=== PATIENT | male | born 1985 | race Caucasian/White ===

== ENCOUNTER 2017-09-08 19:04 | Inpatient (IN) | payer OTHER ==
[~2017-09-08] VITALS: Ht 172.7 cm; Wt 69.3 kg
[~2017-09-08 19:04] MED LIST: METH10TA2 PO
--- NOTE | 2017-09-08 19:33 | EMERGENCY ROOM VISIT NOTE ---
History First contact with patient: 19:08 Chief Complaint: MENTAL HEALTH EVALUATION Stated Complaint: SUICIDAL - DEPRESSED History of Present Illness The patient is a 32 year old male who presents to the Emergency Room with complaints of dangerous behavior today and not caring whether he lives or dies. Patient with prior history of drug abuse but states he has not used illicit drugs in 10 years. Patient uses methadone chronically. Patient denies alcohol use. Denies any recent injury or illness. Patient states he did lose his job earlier today. Patient denies any family locally. Patient states he does not have specific plan to hurt himself, however does not care if he is alive. No thoughts of hurting anyone else, denies paranoia and hallucinations. Source of History: patient Onset: today Position: other (global) Quality: other (mental health) Timing: other (episode) Note: The patient complains of suicidal ideations. The patient denies recent illness, recent injury, having a plan, homicidal ideations, paranoia, and hallucinations. Review of Systems See HPI for pertinent positives & negatives. A total of 10 systems reviewed and were otherwise negative. Past Medical/Surgical History Medical Problems: (1) Anxiety (2) Bipolar disorder (3) Cannabis abuse (4) Cocaine abuse (5) Depression (6) Hepatitis C (7) Heroin abuse (8) Mood disorder (9) Personality disorder (10) PTSD (post-traumatic stress disorder) Social History Problems: (1) IVDU (intravenous drug user) Family History Patient reports no known family medical history. Social History Smoking Status: Former Smoker Alcohol Use: none Drug Use: marijuana Housing Status: lives alone Occupation Status: employed Current/Historical Medications Scheduled Methadone Hcl (Dolophine), 92 MG PO DAILY Physical Exam Vital Signs Date Time Temp Pulse Resp B/P (MAP) Pulse Ox O2 Delivery O2 Flow Rate FiO2 09/08/17 22:26 36.7 51 16 103/60 09/08/17 20:57 54 16 114/70 100 Room Air 09/08/17 19:13 36.7 68 16 129/77 98 Room Air Physical Exam GENERAL: alert, well appearing, well nourished, no distress, non-toxic EYE EXAM: normal conjunctiva, PERRL and EOM's grossly intact OROPHARYNX: no exudate, no erythema, lips, buccal mucosa, and tongue normal and mucous membranes are moist NECK: supple, no nuchal rigidity, no adenopathy, non-tender LUNGS: Clear to auscultation. Normal chest wall mechanics HEART: no murmurs, S1 normal and S2 normal ABDOMEN: abdomen soft, non-tender, normo-active bowel sounds, no masses, no rebound or guarding. BACK: Back is symmetrical on inspection and there is no deformity, no midline tenderness, no CVA tenderness. SKIN: no rashes and no bruising UPPER EXTREMITIES: upper extremities are grossly normal. LOWER EXTREMITIES: No pitting edema. NEURO EXAM: Normal sensorium, cranial nerves II-XII grossly intact, normal speech, no gross weakness of arms, no gross weakness of legs. Gross sensation intact. Medical Decision & Procedures Laboratory Results 09/08/17 19:58 Red Blood Count 4.04, Mean Corpuscular Volume 96.5, Mean Corpuscular Hemoglobin 32.2, Mean Corpuscular Hemoglobin Concent 33.3, Mean Platelet Volume 10.7, Neutrophils (%) (Auto) 49.7, Lymphocytes (%) (Auto) 41.6, Monocytes (%) (Auto) 7.0, Eosinophils (%) (Auto) 1.2, Basophils (%) (Auto) 0.3, Neutrophils # (Auto) 2.99, Lymphocytes # (Auto) 2.50, Monocytes # (Auto) 0.42, Eosinophils # (Auto) 0.07, Basophils # (Auto) 0.02 09/08/17 19:58 Test 09/08/17 19:20 09/08/17 19:58 Urine Color YELLOW Urine Appearance CLEAR (CLEAR) Urine pH 7.5 (4.5-7.5) Urine Specific Rose 1.008 (1.000-1.030) Urine Protein NEG (NEG) Urine Glucose (UA) NEG (NEG) Urine Ketones NEG (NEG) Urine Occult Blood NEG (NEG) Urine Nitrite NEG (NEG) Urine Bilirubin NEG (NEG) Urine Urobilinogen NEG (NEG) Urine Leukocyte Esterase NEG (NEG) Urine Opiates Screen NEG (NEG) Urine Methadone, Qualitative POS (NEG) Urine Barbiturates NEG (NEG) Urine Phencyclidine (PCP) Level NEG (NEG) Ur Amphetamine/Methamphetamine NEG (NEG) MDMA (Ecstasy) Screen NEG (NEG) Urine Benzodiazepines Screen NEG (NEG) Urine Cocaine Metabolite NEG (NEG) Urine Marijuana (THC) POS (NEG) White Blood Count 6.01 K/uL (4.8-10.8) Red Blood Count 4.04 M/uL (4.7-6.1) Hemoglobin 13.0 g/dL (14.0-18.0) Hematocrit 39.0 % (42-52) Mean Corpuscular Volume 96.5 fL (80-100) Mean Corpuscular Hemoglobin 32.2 pg (25-34) Mean Corpuscular Hemoglobin Concent 33.3 g/dl (32-36) Platelet Count 195 K/uL (130-400) Mean Platelet Volume 10.7 fL (7.4-10.4) Neutrophils (%) (Auto) 49.7 % Lymphocytes (%) (Auto) 41.6 % Monocytes (%) (Auto) 7.0 % Eosinophils (%) (Auto) 1.2 % Basophils (%) (Auto) 0.3 % Neutrophils # (Auto) 2.99 K/uL (1.4-6.5) Lymphocytes # (Auto) 2.50 K/uL (1.2-3.4) Monocytes # (Auto) 0.42 K/uL (0.11-0.59) Eosinophils # (Auto) 0.07 K/uL (0-0.5) Basophils # (Auto) 0.02 K/uL (0-0.2) RDW Standard Deviation 52.2 fL (36.4-46.3) RDW Coefficient of Variation 14.8 % (11.5-14.5) Immature Granulocyte % (Auto) 0.2 % Immature Granulocyte # (Auto) 0.01 K/uL (0.00-0.02) Anion Gap 6.0 mmol/L (3-11) Est Creatinine Clear Calc Drug Dose 126.2 ml/min Estimated GFR () 136.6 Estimated GFR (Non- 117.8 BUN/Creatinine Ratio 9.4 (10-20) Bedside Glucose 79 mg/dl (70-99) Calcium Level 9.1 mg/dl (8.5-10.1) Total Bilirubin 0.4 mg/dl (0.2-1) Direct Bilirubin 0.1 mg/dl (0-0.2) Aspartate Amino Transf (AST/SGOT) 39 U/L (15-37) Alanine Aminotransferase (ALT/SGPT) 71 U/L (12-78) Alkaline Phosphatase 44 U/L (45-117) Total Protein 7.0 gm/dl (6.4-8.2) Albumin 3.8 gm/dl (3.4-5.0) Thyroid Stimulating Hormone (TSH) 3.040 uIu/ml (0.300-4.500) Ethyl Alcohol mg/dL < 3.0 mg/dl (0-3) Laboratory results per my review. ED Course 0: The patient was evaluated in room A8. A complete history and physical exam was performed. 2030: I signed the patient out to Dr. Yung Klein at change of shift. Medical Decision Etiologies such as mood disorder, infection, hypoglycemia, electrolyte abnormalities, cardiac sources, intracerebral event, toxicologic, neurologic, as well as others were entertained. Medication Reconcilliation Current Medication List: was personally reviewed by me Blood Pressure Screening Patient's blood pressure: Normal blood pressure Blood pressure disposition: Did not require urgent referral Impression Primary Impression: Depression Additional Impression: Suicidal ideation Departure Information Dispostion Still a Patient Referrals No Doctor, Assigned (PCP) Patient Instructions My [facility] Problem Qualifiers Primary Impression: Depression Depression Type: unspecified Qualified Codes: F32.9 - Major depressive disorder, single episode, unspecified
[2017-09-08 20:10] LABS: BASO % 0.3 %; BASO ABS # 0.02 K/uL (0-0.2); EOS % 1.2 %; EOS ABS # 0.07 K/uL (0-0.5); IG# 0.01 K/uL (0.00-0.02); LYMPH % 41.6 %; MEAN CELL VOLUME 96.5 fL (80-100); MEAN CORPUSCULAR HEMOGLOBIN 32.2 pg (25-34); MEAN CORPUSCULAR HGB CONC 33.3 g/dl (32-36); MEAN PLATELET VOLUME 10.7 fL (7.4-10.4); MONO ABS # 0.42 K/uL (0.11-0.59); NEUT % 49.7 %; NEUT ABS # 2.99 K/uL (1.4-6.5); PLATELET COUNT 195 K/uL (130-400); RED CELL DISTRIBUTION WIDTH CV 14.8 % (11.5-14.5); RED CELL DISTRIBUTION WIDTH SD 52.2 fL (36.4-46.3); WHITE BLOOD COUNT 6.01 K/uL (4.8-10.8)
[2017-09-08 20:38] LABS: ALBUMIN 3.8 gm/dl (3.4-5.0); CALCIUM 9.1 mg/dl (8.5-10.1); CREATININE 0.82 mg/dl (0.60-1.40); POTASSIUM 3.4 mmol/L (3.5-5.1)
[2017-09-08 22:26] VITALS: BP 103/60; PULSE 51; TEMP 36.7; BMI 23.2
--- NOTE | 2017-09-08 22:27 | EMERGENCY ROOM VISIT NOTE ---
ED Visit Note First contact with patient: 22:26 I received this patient at change of shift signout from Dr. arteaga. Please see her note for complete history and physical. The patient was medically cleared prior to my arrival. I reviewed the patient's laboratory studies. The patient had significant mental health issues this evening. He was evaluated by the mental health registered nurse hh case manager. He was felt to be a good candidate for voluntary admission. The patient was felt to be a good candidate for [facility]. admission and was evaluated by the delegate from [facility]. He was admitted to [facility]. without incident.
[2017-09-08] MEDS ORDERED: NURSING VERBAL MED ORDER ONE (22:30)
[2017-09-08 22:33] VITALS: O2SAT 100
[2017-09-08] MEDS ORDERED: ACETAMINOPHEN 325 MG TAB PO PRN (22:45)
[2017-09-08] MEDS ORDERED: ALUMINUM/MAGNESIUM SUSP 30 ML UDC PO PRN (22:45)
[2017-09-08] MEDS ORDERED: BISMUTH SUBSALICYLATE PER ML OMNICELL CHARGE PO PRN (22:45)
[2017-09-08] MEDS ORDERED: hydrOXYzine HCL 25 MG TAB PO PRN ×2 (22:45)
[2017-09-08] MEDS ORDERED: SODIUM CHLORIDE 0.65% NA SOLN 45 ML (OCEAN) PRN (22:45)
[2017-09-08] MEDS ORDERED: MAGNESIUM HYDROXIDE SUSP 30 ML UDC PO PRN (22:45)
[2017-09-09 07:01] VITALS: BP_SYST 105; BP_SYST 106; BP_DIAS 62; BP_DIAS 67; PULSE 46; PULSE 61; TEMP 36.4
--- NOTE | 2017-09-09 09:50 | Psychiatric History & Physical ---
History Date of Service Sep 09, 2017. Identifying Data Patric Vogel, who goes by Mina, is a 32-year-old male who is homeless in [place], has a history of mood disorder NOS, cannabis abuse, heroin abuse , and personality disorder, was recently discharged from our unit after a short stay, and was admitted voluntarily on Sep 08, 2017 at 22:28 after he presented to the emergency room reporting suicidal thoughts. Chief Complaint "Everything was alright, I went to work and shit, some stuff happened, I lost my job, had a bad couple of days". History of Present Illness The patient was admitted to the behavioral health unit from 09/02/2017 through , also for suicidal ideation. He had been brought in by police after bystanders notified them that he was standing on the ledge of a parking garage with intent to jump. He reported being homeless and living on the streets for the past 3 years, said he had no supports locally, and wanted to end his life. He had had an argument with his boss, when he asked to be paid early and his boss declined. He reported being estranged from all of his family members, including his ex- and children who live in another state. He gave inconsistent and conflicting reports, and we received outside information that he had been kicked out of multiple local shelters due to assaulting others and stealing, which he denied. He said he had a history of multiple mental health diagnoses, but was not currently in treatment. He also endorsed a significant substance abuse history, including daily cannabis and a history of IV heroin use , receiving methadone from [facility]. He reported that he had become acutely suicidal when his boss would not give him his paycheck early. He wanted assistance in finding housing, and wanted to be put back on medications, specifically requesting high-dose gabapentin. When encouraged to consider other mood stabilizers with less abuse potential, risk of drug drug interactions, and greater efficacy, he refused, stating he would just continue to smoke pot, as he liked that better. The social welfare clerk met with him and attempted to refer him to multiple local shelters, but was informed that he was well known to them and had been asked to leave due to assaulting others and stealing. He refused a family meeting, stating he had no supports. [facility], who declined to provide him services as he is not a county resident ([facility], and address on his license is [place], which he says is his father's residence). He was referred to [facility] for dual diagnosis treatment (intake was scheduled for today), and was discharged the following day. Per previous H&P: He reports he first got mental health treatment in 2011, in multiple rehabs, and lists the above diagnoses. He describes mood as "always up and down," with periods of "high energy," impulsivity and racing thoughts, during which sleep is unchanged (chronically poor, due to sleeping outside on benches). He has had episodes of decreased need for sleep, says he went for 9 days without sleep while using cocaine and meth, but not in the absence of substance abuse. He reports mood switches frequently from elevated to depressed, usually multiple times a day. He denies periods of euthymia, and prolonged periods of depression. He says mood is only "stable" when he's under the influence of cannabis, and he thinks it is a good substance for him. He does not plan to change his use, saying it helps him with sleep, appetite, socialization, concentration, creativity, "making good decisions," and "a better mood." When it is reflected back to him that he reports smoking cannabis daily, but that mood has been "all over the place," he says that is only because he does not have enough money to smoke throughout the day, and the effects only last for about 4 hours. He denies AVH, paranoia. He denies current PTSD symptoms, but says months ago he had "night terrors," which he describes as "very vivid dreams , wake up in a panic attack." He denies other anxiety symptoms and OCD. He gives several reports of other lying about him and causing problems for him, including that the woman who runs a local half-way lied about him stealing purses from a christianity and kicked him out unfairly, that he was arrested on burglary charges as an adolescent because of other people's actions, and that his aunt lied about him to get a PFA so that he would be kicked out of the house and she could use it. He initially stated that he came to the [place] area because he had friends and family here, but then stated that he has no friends or supports, and all of his family are . With repeated questioning, he stated that his father is still alive and living in [place], but they do not have contact. He presented to the emergency room yesterday, stating that he woke up feeling depressed, and his mood worsened as the day progressed. He said that he was "doing stupid things today," such as walking into traffic without looking, and walking on the ledge of a parking deck. He did not want to live, and did not feel he has a purpose. He said he should have started on medications and wished she would not have refused treatment during his last admission. He said he had been living at the [facility], and spending his time " wandering around." He had lost his job due to missing shifts. His drug screen was positive for methadone and THC. On my assessment, he says "some stuff happened, I lost my job," and says he has "no idea, can't even imagine" why. He says mood was "great" when he left the hospital, and was stable until "I lost it yesterday morning, I was all over the place, lost my shit." He is vague when asked what happened yesterday that triggered the mood change. With repeated questioning, says his boss texted him yesterday am not to come in and "seemed upset." He then stopped responding to the patient's texts, "so I was just in a really bad mood, freaking out, doing reckless shit." He "ran into a friend Maurice, he suggested that I come in here, and walked me back here." He says there "was more going on," but won't say what that is. Says "there's definitely something wrong with me, having outbursts like that," saying he was "yelling, cursing, just walking out in front of cars." Says this morning he is "not good, I need a dose" (methadone), and reports thoughts are "jumbled." When asked if he is suicidal, says "I don't know, I would be." He says he'd "probably be in [facility] or if I wasn't here." Past Psychiatric History Current OP Treatment: no current treatment (Was referred to [facility], with an intake today.) Prior OP Treatment: psychiatrist (Dr. Pacheco in [place] - 9 mos ago), therapist (Eric Ascencio in [place] - 3 years ago) Prior Psych Hospitalizations: [facility] (09/02/2017 -09/04/2017) Access to a Gun: No Suicide Attempts: No Past Medication Trials Per patient, citalopram 20mg daily Depakote - "didn't work, I don't want that, or I had side effects, just felt blah" lithium - doesn't recall effect, but says it was prescribed in 2011 at [facility] in [place] topiramate gabapentin 800mg tid (patient reported 1200mg tid, but Dr. Pacheco's records indicated 800mg qid) aripiprazole for depression - "made me jump out of my skin" risperidone - "I don't want that" quetiapine - "caused tardive dyskinesia" trazodone - "caused tardive dyskinesia" sinequan - "caused tardive dyskinesia" mirtazapine - "caused tardive dyskinesia" Suboxone for many years, prior to methadone -no medications in about 1 year. Says meds helped, but he didn't like having to take them or get refills, and "gave them up for marijuana." Additional Notes Records from Dr. Pacheco, his former outpatient psychiatrist in [place] reviewed : One progress note from 04/06/2017 was sent. He was diagnosed with bipolar disorder, generalized anxiety disorder, opiate dependence, cocaine abuse, and unspecified cocaine-induced disorder. He reported mild depression, anger outbursts, and anxiety. He was being prescribed aripiprazole 5 mg at bedtime, topiramate 50 mg twice daily, benztropine 1 mg as needed, citalopram 10 mg daily , and gabapentin 800 mg 4 times daily. Past Medical/Surgical History (1) Hepatitis C (2) Cannabis abuse (3) Heroin abuse (4) IVDU (intravenous drug user) (5) Cocaine abuse No PCP Allergies Allergies: Coded Allergies: Doxepin (Verified Allergy, Severe, TARTIVE DYSKINESIA, 09/08/17) Mirtazapine (Verified Allergy, Severe, TARTIVE DYSKINESIA, 09/08/17) Quetiapine (Verified Allergy, Severe, TARTIVE DYSKINESIA, 09/08/17) Trazodone (Verified Allergy, Severe, TARTIVE DYSKINESIA, 09/08/17) Doxycycline (Verified Adverse Reaction, Severe, NAUSEA & VOMITING, 09/08/17 ) Home Medications Scheduled Methadone Hcl (Dolophine), 92 MG PO DAILY Family History Patient reports no known family medical history. Patient doesn't know his family history. Mother in MVA, sister at age 37 from melanoma. He thinks there is substance abuse in the family, but doesn't know details. Alcohol Use Alcohol Use In Past 12 Months: No AUDIT Total Score: 0 Smoking Use Smoking Status: Never Smoker Substance History Patient has given inconsistent reports about his substance use; UDS is positive for THC and methadone. Started using IV heroin at the age 14, with legal consequences resulted in probation, and juvenile group home. On methadone from [facility] since 01/2017, and denies using heroin in that time. Cannabis - started at age 12, using daily currently. Patient reports 21 prior rehab stays starting in 2001 when he was 17, 5 in 2017 , most recent was in 10/2016 at [facility]. Personal History Lives in: Homeless, no stable housing in about 3 years. Childhood: Unstable - grew up in [facility]. Mother when patient was 12 in an MVA , some suspicion it was suicide. Did not meet his father until he was 26 yrs old. He initially stated his father was , then admitted he lives in [place], but they don't have contact. He lists his father's address as his "for mail." After mother , he went to [place] and lived with "this 25 year old and 18 year old," and got into legal trouble, so fled the state and went to the [place], [place] where he got into the drug scene, and later to [place] and [place]. Initially denies that he has any other family, then says he has an aunt (father's sister) who lives in [place] and has a PFA against him as "she needed to get rid of me so someone else could live there." Education: started high school (GED) Work History: Recently lost his job at [employer]. 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 States he was being drug tested there but he doesn't know why. He collected unemployment until he was no longer eligible for those benefits. Relationship History: Children: 2 sons (ages 3 and 11), live with his ex- in [place], very little contact. Legal History: reported (Reports Aunt has a PFA against him, and arrests as a teen for burglary) Psychological Trauma History: Significant Loss Examination Physical Examination A physical exam was performed in the ER prior to admission to the unit by Dr. Starr. I accept that physical as correct/medical clearance for the inpatient physical exam. Vital Signs Vital Signs Past 12 Hours Date Time Temp Pulse Resp B/P (MAP) Pulse Ox O2 Delivery O2 Flow Rate FiO2 09/09/17 07:01 36.4 46 16 106/62 61 105/67 09/08/17 22:33 54 16 103/60 100 09/08/17 22:26 36.7 51 16 103/60 Laboratory Results Last 24 Hours Test 09/08/17 19:20 09/08/17 19:58 Urine Color YELLOW Urine Appearance CLEAR Urine pH 7.5 Urine Specific Henderson 1.008 Urine Protein NEG Urine Glucose (UA) NEG Urine Ketones NEG Urine Occult Blood NEG Urine Nitrite NEG Urine Bilirubin NEG Urine Urobilinogen NEG Urine Leukocyte Esterase NEG Urine Opiates Screen NEG Urine Methadone, Qualitative POS Urine Barbiturates NEG Urine Phencyclidine (PCP) Level NEG Ur Amphetamine/Methamphetamine NEG MDMA (Ecstasy) Screen NEG Urine Benzodiazepines Screen NEG Urine Cocaine Metabolite NEG Urine Marijuana (THC) POS White Blood Count 6.01 K/uL Red Blood Count 4.04 M/uL Hemoglobin 13.0 g/dL Hematocrit 39.0 % Mean Corpuscular Volume 96.5 fL Mean Corpuscular Hemoglobin 32.2 pg Mean Corpuscular Hemoglobin Concent 33.3 g/dl Platelet Count 195 K/uL Mean Platelet Volume 10.7 fL Neutrophils (%) (Auto) 49.7 % Lymphocytes (%) (Auto) 41.6 % Monocytes (%) (Auto) 7.0 % Eosinophils (%) (Auto) 1.2 % Basophils (%) (Auto) 0.3 % Neutrophils # (Auto) 2.99 K/uL Lymphocytes # (Auto) 2.50 K/uL Monocytes # (Auto) 0.42 K/uL Eosinophils # (Auto) 0.07 K/uL Basophils # (Auto) 0.02 K/uL RDW Standard Deviation 52.2 fL RDW Coefficient of Variation 14.8 % Immature Granulocyte % (Auto) 0.2 % Immature Granulocyte # (Auto) 0.01 K/uL Sodium Level 138 mmol/L Potassium Level 3.4 mmol/L Chloride Level 104 mmol/L Carbon Dioxide Level 28 mmol/L Anion Gap 6.0 mmol/L Blood Urea Nitrogen 8 mg/dl Creatinine 0.82 mg/dl Est Creatinine Clear Calc Drug Dose 126.2 ml/min Estimated GFR () 136.6 Estimated GFR (Non- 117.8 BUN/Creatinine Ratio 9.4 Bedside Glucose 79 mg/dl Random Glucose 74 mg/dl Calcium Level 9.1 mg/dl Total Bilirubin 0.4 mg/dl Direct Bilirubin 0.1 mg/dl Aspartate Amino Transf (AST/SGOT) 39 U/L Alanine Aminotransferase (ALT/SGPT) 71 U/L Alkaline Phosphatase 44 U/L Total Protein 7.0 gm/dl Albumin 3.8 gm/dl Thyroid Stimulating Hormone (TSH) 3.040 uIu/ml Ethyl Alcohol mg/dL < 3.0 mg/dl Mental Examination During interview pt is: alert and oriented, other (Partially cooperative) Appearance: appropriately dressed, disheveled, other (Multiple skull tattoos on bilateral upper extremities) Eye contact is: fair Motor behavior is: steady gait & station, no abnormal motor movements Speech: normal in rate, rhythm & volume Affect: irritable Mood is: other ("I don't know, all over the place.") Thought process: goal directed (Vague statements) Thought content: reality based without delusions Suicidal thought are: denied Homicidal thoughts are: denied Hallucinations: denies auditory, denies visual Cognition: memory grossly intact, attention grossly intact, language grossly intact Intelligence estimated to be: consistent with level of education Insight: poor Judgement: poor Impression / Recommendations Impression 32-year-old male with a history of bipolar disorder, polysubstance abuse (heroin, cocaine, THC), and personality disorder who is admitted with suicidal ideation after an anger outburst. He would like assistance restarting medications and arrange an aftercare, but at the same time is talking about going back to [place], where he previously lived on the streets. He is vague about the circumstances surrounding his admission, and states there is no one he will allow us to talk to for collateral information. At this time, he requires inpatient treatment due to the risk for suicide if discharged. Risk Factors Assessment Male: Yes : Yes /single/: Yes Higher / Fall in social status: Yes Access to guns: No Health problems: No Mental Health Diagnoses: Yes Substance use disorders: Yes Previous attempt: Yes Family history of suicide: No Previous psychiatric stay: Yes Hopelessness: No Smoker: No Protective Factors Assessment : No Responsible for young children: No Employed: No Stable relationships: No Supportive family: No Good rapport with provider: No Recommendations (1) Mood disorder 09/09 -mood disorder NOS, differential includes substance-induced depression, personality disorder, unipolar depression and bipolar depression. Based on his report and available records, substance-induced depression versus Cashion II disorder seem most likely. It would be helpful to get collateral information, but he states there is no one he will allow us to speak with. -Patient states no medications have worked other than high dose gabapentin. Again reviewed concerns with using this medication (interactions with methadone , abuse potential), and previous OP records from Dr. Pacheco. After discussion of this and the alternatives, agreed to start 100mg tid and see how he responds, titrating as tolerated. It is not the preferred treatment but patient reports previous good response and we can monitor him here for AMS/drug interactions. -Intake was scheduled with [facility] for today, and will need to be rescheduled. -Patient is not eligible for case management, as his residence is listed in another county. He does not have local half-way options due to his past behaviors. Encouraged him to find employment so that he can get his own housing. (2) Heroin abuse 09/09 -continue methadone, dose confirmed with [facility]. Get collateral information from his counselor at the methadone clinic. (3) Cannabis abuse 09/09 -patient has been educated on the risks of ongoing cannabis use, including worsening psychiatric symptoms, drug drug interactions, legal repercussions, decreased motivation, but is not concerned about his use or interested in changing his behavior. Brief intervention was offered and accepted Intervention was greater than 5 min in length. Brief interventions include: 1. Assess Readiness to Quit, 2. Advise: Help Patient to Reduce or Abstain from Alcohol, 3. Agree: Set Specific, Feasible Goals, 4. Assist: Anticipate barriers, Problem-Solving Solutions. Social work to 5. Arrange: Referrals to appropriate treatment. Summary of intervention: The patient is in precontemplation stage with regards to transtheoretical model of change. The patient is advised to decrease alcohol consumption due to depressant effects and risk of interactions with prescription medications. The patient agreed to engage in services at [facility] and will be provided with recovery materials to continue to education self on how to cope with their condition without drinking. (4) Personality disorder Cluster B traits, predominantly borderline and antisocial. CPT Code Initial Hospital Care: [id number]
[2017-09-09] MEDS: PATIENT'S OWN CONTROLLED MED SCH (10:00)
[2017-09-09] MEDS ORDERED: METHADONE ORAL SOLN 2 MG/1ML PO ONE (11:46)
[2017-09-09] MEDS: NICOTINE 21 MG/24 HR TDSY EXT SCH (12:24)
[2017-09-09] MEDS: GABAPENTIN 100 MG CAP PO SCH ×2 (15:32→22:04)
[2017-09-10 07:03] VITALS: BP_SYST 104; BP_SYST 114; BP_DIAS 55; BP_DIAS 65; PULSE 41; PULSE 59; TEMP 36.4
[2017-09-10] MEDS: PATIENT'S OWN CONTROLLED MED SCH (08:15)
[2017-09-10] MEDS: METHADONE ORAL SOLN 2 MG/1ML PO SCH (08:16)
[2017-09-10] MEDS: NICOTINE 21 MG/24 HR TDSY EXT SCH (08:16)
[2017-09-10] MEDS: GABAPENTIN 100 MG CAP PO SCH ×3 (08:17→21:17)
--- NOTE | 2017-09-10 12:31 | Psychiatric Progress Notes ---
Progress Note Date of Service Sep 10, 2017. Interval History 32 yo male admitted voluntarily after presenting to the ED with severe depression and suicidality. He was discharge last Thursday from our unit for similar symptoms. Chief Complaint "I'm ready. ". Subjective Patient was seen & assessed interval progress reviewed with Treatment Team. The patient says that he feels good today, and denies further SI. He says that he is ready and committed to working sobriety including getting off of methadone. He tells me that he feels like something has changed internally, and that he feels ready to embrace treatment, hoping that we can get him to a rehab from here. He denies physical complaints today. He reports good sleep and appetite. Nursing reports that he has been attending groups with appropriate participation. Review of Systems Constitutional: No fever, No chills, No sweats, No weight loss, No weakness, No fatigue, No problem reported ENT: No hearing loss, No unusual epistaxis, No nasal symptoms, No sore throat, No tinnitus, No dental problems, No trouble swallowing, No problem reported Respiratory: No cough, No sputum, No wheezing, No shortness of breath, No dyspnea on exertion, No dyspnea at rest, No hemoptysis, No problem reported Cardiovascular: No chest pain, No orthopnea, No PND, No edema, No claudication , No palpitations, No problem reported Abdomen: No pain, No nausea, No vomiting, No diarrhea, No constipation, No GI bleeding, No problem reported Musculoskeletal: No joint pain, No muscle pain, No swelling, No calf pain, No problem reported Neurologic: No memory loss, No paralysis, No weakness, No numbness/tingling, No vertigo, No balance problems, No problem reported Psychiatric: No depression symptoms, No anhedonism, No anxiety, No insomnia, No substance abuse, No problem reported Integumentary: No rash, No itch, No new/changing skin lesions, No color change , No bleeding, No problem reported Sleep Information Total Hours of Sleep: 8.25 Meal Information Percent of Breakfast Consumed: 100 Percent of Lunch Consumed: 100 Percent of Dinner Consumed: 100 Mental Status Exam During interview pt is: alert and oriented Appearance: appropriately dressed, appropriately groomed, other (Multiple skull tattoos on bilateral upper extremities) Eye contact is: good Motor behavior is: steady gait & station, no abnormal motor movements Speech: normal in rate, rhythm & volume Affect: euthymic Mood is: other ("Good.") Thought process: goal directed Thought content: reality based without delusions Suicidal thought are: denied Homicidal thoughts are: denied Hallucinations: denies auditory, denies visual Cognition: memory grossly intact, attention grossly intact, language grossly intact Intelligence estimated to be: consistent with level of education Insight: poor Judgement: poor Impression The patient has made the decision to get off of methadone and is requesting referral to a rehab. Although having signed out AMA previously, he feels that he has renewed commitment to sobriety and commits to staying the course. He would like to go from here and so will have social work fax referral information today. Psychiatrically he is stable and can go to rehab when one is available. Plan (1) Mood disorder 09/09 -mood disorder NOS, differential includes substance-induced depression, personality disorder, unipolar depression and bipolar depression. Based on his report and available records, substance-induced depression versus [place] II disorder seem most likely. It would be helpful to get collateral information, but he states there is no one he will allow us to speak with. -Patient states no medications have worked other than high dose gabapentin. Again reviewed concerns with using this medication (interactions with methadone , abuse potential), and previous OP records from Dr. Pacheco. After discussion of this and the alternatives, agreed to start 100mg tid and see how he responds, titrating as tolerated. It is not the preferred treatment but patient reports previous good response and we can monitor him here for AMS/drug interactions. -Intake was scheduled with [facility] for today, and will need to be rescheduled. -Patient is not eligible for case management, as [place] residence [place] in [place] county. He does not have local skilled nursing options due to his past behaviors. Encouraged him to find employment so that he can get his own housing. (2) Heroin abuse 09/09 -continue methadone, dose confirmed with [facility]. Get collateral information from his counselor at the methadone clinic. 09/10 - Refer to rehab (3) Cannabis abuse 09/09 -patient has been educated on the risks of ongoing cannabis use, including worsening psychiatric symptoms, drug drug interactions, legal repercussions, decreased motivation, but is not concerned about his use or interested in changing his behavior. Brief intervention was offered and accepted Intervention was greater than 5 min in length. Brief interventions include: 1. Assess Readiness to Quit, 2. Advise: Help Patient to Reduce or Abstain from Alcohol, 3. Agree: Set Specific, Feasible Goals, 4. Assist: Anticipate barriers, Problem-Solving Solutions. Social work to 5. Arrange: Referrals to appropriate treatment. Summary of intervention: The patient is in precontemplation stage with regards to transtheoretical model of change. The patient is advised to decrease alcohol consumption due to depressant effects and risk of interactions with prescription medications. The patient agreed to engage in services at [facility] and will be provided with recovery materials to continue to education self on how to cope with their condition without drinking. (4) Personality disorder Cluster B traits, predominantly borderline and antisocial. Discharge / Aftercare Planning Primary Care Physician: Name: Penny Therapist: Name: Chris Griffin, and rescheduled for 09/23 @10:30 Date of Appointment: Sep 09, 2017 Insole Coverer: Name: Penny Visit Code E&M Code: 71508 Risk Factors Assessment Male: Yes : Yes /single/: Yes Higher / Fall in social status: Yes Health problems: No Mental Health Diagnoses: Yes Substance use disorders: Yes Previous attempt: Yes Family history of suicide: No Previous psychiatric stay: Yes Hopelessness: No Smoker: No Protective Factors Assessment : No Responsible for young children: No Employed: No Stable relationships: No Supportive family: No Good rapport with provider: No Data Vital Signs Last 24 Hrs: Date Time Temp Pulse Resp B/P (MAP) Pulse Ox O2 Delivery O2 Flow Rate FiO2 09/10/17 07:03 36.4 41 16 104/55 59 114/65 Meds Administered Last 24 Hrs: Meds Administered (Past 24Hrs) Medications (Trade) Dose Ordered Sig/Liam Route Start Time Stop Time Status Last Admin Dose Admin Methadone HCl (Methadone HCl) 92 mg DAILY PO 09/10/17 09:00 09/24/17 08:59 09/10/17 08:16 92 MG Methadone HCl (Methadone HCl) 92 mg NOW ONCE PO 09/09/17 11:46 09/09/17 11:47 DC 09/09/17 10:00 92 MG Nicotine (Nicoderm Cq 21MG Patch) 1 patch QAM EXT 09/09/17 12:00 10/09/17 11:59 09/10/17 08:16 1 PATCH Miscellaneous (Remove Nicoderm Patch) 1 ea QAM N/A 09/10/17 09:00 10/10/17 08:59 09/10/17 08:16 1 EA Gabapentin (Neurontin Cap) 100 mg TID PO 09/09/17 15:00 10/09/17 14:59 09/10/17 08:17 100 MG Lab Results Last 24 Hrs: 09/08/17 19:58 Red Blood Count 4.04, Mean Corpuscular Volume 96.5, Mean Corpuscular Hemoglobin 32.2, Mean Corpuscular Hemoglobin Concent 33.3, Mean Platelet Volume 10.7, Neutrophils (%) (Auto) 49.7, Lymphocytes (%) (Auto) 41.6, Monocytes (%) (Auto) 7.0, Eosinophils (%) (Auto) 1.2, Basophils (%) (Auto) 0.3, Neutrophils # (Auto) 2.99, Lymphocytes # (Auto) 2.50, Monocytes # (Auto) 0.42, Eosinophils # (Auto) 0.07, Basophils # (Auto) 0.02 09/08/17 19:58 Test 09/08/17 19:20 09/08/17 19:58 Urine Color YELLOW Urine Appearance CLEAR (CLEAR) Urine pH 7.5 (4.5-7.5) Urine Specific [place] 1.008 (1.000-1.030) Urine Protein NEG (NEG) Urine Glucose (UA) NEG (NEG) Urine Ketones NEG (NEG) Urine Occult Blood NEG (NEG) Urine Nitrite NEG (NEG) Urine Bilirubin NEG (NEG) Urine Urobilinogen NEG (NEG) Urine Leukocyte Esterase NEG (NEG) Urine Opiates Screen NEG (NEG) Urine Methadone, Qualitative POS (NEG) Urine Barbiturates NEG (NEG) Urine Phencyclidine (PCP) Level NEG (NEG) Ur Amphetamine/Methamphetamine NEG (NEG) MDMA (Ecstasy) Screen NEG (NEG) Urine Benzodiazepines Screen NEG (NEG) Urine Cocaine Metabolite NEG (NEG) Urine Marijuana (THC) POS (NEG) White Blood Count 6.01 K/uL (4.8-10.8) Red Blood Count 4.04 M/uL (4.7-6.1) Hemoglobin 13.0 g/dL (14.0-18.0) Hematocrit 39.0 % (42-52) Mean Corpuscular Volume 96.5 fL (80-100) Mean Corpuscular Hemoglobin 32.2 pg (25-34) Mean Corpuscular Hemoglobin Concent 33.3 g/dl (32-36) Platelet Count 195 K/uL (130-400) Mean Platelet Volume 10.7 fL (7.4-10.4) Neutrophils (%) (Auto) 49.7 % Lymphocytes (%) (Auto) 41.6 % Monocytes (%) (Auto) 7.0 % Eosinophils (%) (Auto) 1.2 % Basophils (%) (Auto) 0.3 % Neutrophils # (Auto) 2.99 K/uL (1.4-6.5) Lymphocytes # (Auto) 2.50 K/uL (1.2-3.4) Monocytes # (Auto) 0.42 K/uL (0.11-0.59) Eosinophils # (Auto) 0.07 K/uL (0-0.5) Basophils # (Auto) 0.02 K/uL (0-0.2) RDW Standard Deviation 52.2 fL (36.4-46.3) RDW Coefficient of Variation 14.8 % (11.5-14.5) Immature Granulocyte % (Auto) 0.2 % Immature Granulocyte # (Auto) 0.01 K/uL (0.00-0.02) Anion Gap 6.0 mmol/L (3-11) Est Creatinine Clear Calc Drug Dose 126.2 ml/min Estimated GFR () 136.6 Estimated GFR (Non- 117.8 BUN/Creatinine Ratio 9.4 (10-20) Bedside Glucose 79 mg/dl (70-99) Calcium Level 9.1 mg/dl (8.5-10.1) Total Bilirubin 0.4 mg/dl (0.2-1) Direct Bilirubin 0.1 mg/dl (0-0.2) Aspartate Amino Transf (AST/SGOT) 39 U/L (15-37) Alanine Aminotransferase (ALT/SGPT) 71 U/L (12-78) Alkaline Phosphatase 44 U/L (45-117) Total Protein 7.0 gm/dl (6.4-8.2) Albumin 3.8 gm/dl (3.4-5.0) Thyroid Stimulating Hormone (TSH) 3.040 uIu/ml (0.300-4.500) Ethyl Alcohol mg/dL < 3.0 mg/dl (0-3)
[2017-09-11 06:51] VITALS: BP_SYST 100; BP_SYST 142; BP_DIAS 66; BP_DIAS 75; PULSE 57; PULSE 66; TEMP 36.5
[2017-09-11] MEDS: GABAPENTIN 100 MG CAP PO SCH ×3 (08:06→21:30)
[2017-09-11] MEDS: NICOTINE 21 MG/24 HR TDSY EXT SCH (08:06)
[2017-09-11] MEDS: PATIENT'S OWN CONTROLLED MED SCH (09:00)
[2017-09-11] MEDS: METHADONE ORAL SOLN 2 MG/1ML PO SCH (09:10)
--- NOTE | 2017-09-11 11:20 | Psychiatric Progress Notes ---
Progress Note Date of Service Sep 11, 2017. Interval History 32 yo male admitted voluntarily after presenting to the ED with severe depression and suicidality. He was discharge last Thursday from our unit for similar symptoms. Chief Complaint "Good, I'm glad to be going to rehab". Subjective Patient was seen & assessed interval progress reviewed with Treatment Team. Staff report the patient has been accepted to [facility] for inpatient D&A rehabilitation, bed date 09/18/17. Pt has been involved with groups and interacting appropriately with peers while on the unit. Pt was seen today to assess progress since admission. Pt states he is looking forward to rehab and is hopeful that this will be "a game-changer" for him. He states, "I had places to run to before, that's why it wasn't successful. I don't have that now , I have to make this work." Pt states he has found his admission to be helpful thus far and is appreciating group discussion. Pt states he has not noticed much change since beginning gabapentin 100mg TID, but states, "I want to be careful about increases, listen to my body and not my mind." Pt denies SI since admission, but given high risk for suicidal thoughts with acts of furtherance in the last few weeks, is understanding of recommendations to remain on unit until he is transported to rehab. Review of Systems Psych: denies symptoms other than stated above Constitutional: denied Cardiovascular: denied GI: denied Neurologic: denied Remainder of 10 body systems also reviewed and denied other than noted above. Sleep Information Total Hours of Sleep: 7.75 Meal Information Percent of Breakfast Consumed: 100 Percent of Lunch Consumed: 90 Percent of Dinner Consumed: 100 Mental Status Exam During interview pt is: alert and oriented, cooperative Appearance: appropriately dressed, appropriately groomed, other (Multiple skull tattoos on bilateral upper extremities) Eye contact is: good Motor behavior is: steady gait & station, no abnormal motor movements Speech: normal in rate, rhythm & volume Affect: euthymic Mood is: other ("Good" ) Thought process: goal directed, clear, coherent Thought content: reality based without delusions Suicidal thought are: denied Homicidal thoughts are: denied Hallucinations: denies auditory, denies visual Cognition: memory grossly intact, attention grossly intact, language grossly intact Intelligence estimated to be: consistent with level of education Insight: fair Judgement: fair Impression Pt remains in good spirits and is hopeful about rehab, reporting he is invested in the process and "doing it the right way this time." Pt denies side effects for restarting gabapentin 100mg TID. He reports previous dose of 1200mg TID, but states he thinks "anything above 300mg TID is overkill." He reports wanting to be cautious about increasing doses of medications, so will continue at current dose for today. Pt has rehab bed date of 09/18/17 - although psychiatrically stable currently, would not recommend discharge home prior to rehab. Pt had reported several high risk behaviors in the context of SI prior to his 2 recent discharge. Given unemployment, homelessness, and no local supports, it appears most appropriate that the patient be transported to rehab directly from this facility. Plan (1) Mood disorder 09/09 -mood disorder NOS, differential includes substance-induced depression, personality disorder, unipolar depression and bipolar depression. Based on his report and available records, substance-induced depression versus [place] II disorder seem most likely. It would be helpful to get collateral information, but he states there is no one he will allow us to speak with. -Patient states no medications have worked other than high dose gabapentin. Again reviewed concerns with using this medication (interactions with methadone , abuse potential), and previous OP records from Dr. Pacheco. After discussion of this and the alternatives, agreed to start 100mg tid and see how he responds, titrating as tolerated. It is not the preferred treatment but patient reports previous good response and we can monitor him here for AMS/drug interactions. -Intake was scheduled with [facility] for today, and will need to be rescheduled. -Patient is not eligible for case management, as his residence [place] in another county. He does not have local care home options due to his past behaviors. Encouraged him to find employment so that he can get his own housing. 09/11 - Continue gabapentin 100mg TID, not titrated today, pt reports historically effective dose of 300mg TID, despite high dose of 1200mg previously - Continue to encourage participation in group programming and working on recovery as able prior to transfer to inpatient rehab on 09/18/17 (2) Heroin abuse 09/09 -continue methadone, dose confirmed with [facility]. Get collateral information from his counselor at the methadone clinic. 09/10 - Refer to rehab 09/11 - Accepted to rehab - bed date 09/18/17 (3) Cannabis abuse 09/09 -patient has been educated on the risks of ongoing cannabis use, including worsening psychiatric symptoms, drug drug interactions, legal repercussions, decreased motivation, but is not concerned about his use or interested in changing his behavior. Brief intervention was offered and accepted Intervention was greater than 5 min in length. Brief interventions include: 1. Assess Readiness to Quit, 2. Advise: Help Patient to Reduce or Abstain from Alcohol, 3. Agree: Set Specific, Feasible Goals, 4. Assist: Anticipate barriers, Problem-Solving Solutions. Social work to 5. Arrange: Referrals to appropriate treatment. Summary of intervention: The patient is in precontemplation stage with regards to transtheoretical model of change. The patient is advised to decrease alcohol consumption due to depressant effects and risk of interactions with prescription medications. The patient agreed to engage in services at [facility] and will be provided with recovery materials to continue to education self on how to cope with their condition without drinking. (4) Personality disorder Cluster B traits, predominantly borderline and antisocial. Discharge / Aftercare Planning Primary Care Physician: Name: Penny Therapist: Name: Chris Griffin, and rescheduled for 09/23 @10:30 Date of Appointment: Sep 09, 2017 Director Of Graduate Medical Education: Name: Penny Visit Code E&M Code: 38448 Risk Factors Assessment Male: Yes : Yes /single/: Yes Higher / Fall in social status: Yes Health problems: No Mental Health Diagnoses: Yes Substance use disorders: Yes Previous attempt: Yes Family history of suicide: No Previous psychiatric stay: Yes Hopelessness: No Smoker: No Protective Factors Assessment : No Responsible for young children: No Employed: No Stable relationships: No Supportive family: No Good rapport with provider: No Data Vital Signs Last 24 Hrs: Date Time Temp Pulse Resp B/P (MAP) Pulse Ox O2 Delivery O2 Flow Rate FiO2 09/11/17 06:51 36.5 57 16 100/75 66 142/66 Meds Administered Last 24 Hrs: Meds Administered (Past 24Hrs) Medications (Trade) Dose Ordered Sig/Liam Route Start Time Stop Time Status Last Admin Dose Admin Methadone HCl (Methadone HCl) 92 mg DAILY PO 09/10/17 09:00 8/9/18 08:59 09/11/17 09:10 92 MG Methadone HCl (Methadone HCl) 92 mg NOW ONCE PO 09/09/17 11:46 09/09/17 11:47 DC 09/09/17 10:00 92 MG Nicotine (Nicoderm Cq 21MG Patch) 1 patch QAM EXT 09/09/17 12:00 10/09/17 11:59 09/11/17 08:06 1 PATCH Miscellaneous (Remove Nicoderm Patch) 1 ea QAM N/A 09/10/17 09:00 10/10/17 08:59 09/11/17 08:06 1 EA Gabapentin (Neurontin Cap) 100 mg TID PO 09/09/17 15:00 10/09/17 14:59 09/11/17 08:06 100 MG
[2017-09-12 07:06] VITALS: BP_SYST 104; BP_SYST 98; BP_DIAS 61; BP_DIAS 63; PULSE 46; PULSE 66; TEMP 36.6
[2017-09-12] MEDS: NICOTINE 21 MG/24 HR TDSY EXT SCH (07:24)
[2017-09-12] MEDS: PATIENT'S OWN CONTROLLED MED SCH (07:52)
[2017-09-12] MEDS: GABAPENTIN 100 MG CAP PO SCH ×3 (07:52→21:02)
[2017-09-12] MEDS: METHADONE ORAL SOLN 2 MG/1ML PO SCH (07:53)
--- NOTE | 2017-09-12 14:31 | Psychiatric Progress Notes ---
Progress Note Date of Service Sep 12, 2017. Interval History 32 yo male admitted voluntarily after presenting to the ED with severe depression and suicidality. He was discharge last Thursday from our unit for similar symptoms. Chief Complaint "I'm ready to do the work". Subjective Patient was seen & assessed interval progress reviewed with Treatment Team. Staff reports pt accepted to [facility] 09/18/17. No acute events overnight. He appears optimistic this AM again describing rehab as an opportunity an a game changer. He endorses resolve to pursue his sobriety identifying his 2 children as motivation. He does c/o some mood decline in last day and would like to increase the Neurontin which has been helpful for him in the past for mood and anxiety. He denies h/o SE with the medication at lwoer doses but notes he has taken as much as 1200mg TID in past. Denies SI. Review of Systems Constitutional: No problem reported Psychiatric: + depression symptoms Sleep Information Total Hours of Sleep: 7.50 Meal Information Percent of Breakfast Consumed: 100 Percent of Lunch Consumed: 100 Percent of Dinner Consumed: 100 Mental Status Exam During interview pt is: alert and oriented, cooperative Appearance: appropriately dressed, appropriately groomed, other (Multiple skull tattoos on bilateral upper extremities) Eye contact is: good Motor behavior is: steady gait & station, no abnormal motor movements Speech: normal in rate, rhythm & volume Affect: other (calm and cooperative) Mood is: other ("Good" ) Thought process: goal directed, clear, coherent Thought content: reality based without delusions Suicidal thought are: denied Homicidal thoughts are: denied Hallucinations: denies auditory, denies visual Cognition: memory grossly intact, attention grossly intact, language grossly intact Intelligence estimated to be: consistent with level of education Insight: fair Judgement: fair Impression Pt has rehab bed date of 09/18/17 - although psychiatrically stable currently, would not recommend discharge home prior to rehab. Pt had reported several high risk behaviors in the context of SI prior to his 2 recent discharge. Given unemployment, homelessness, and no local supports, it appears most appropriate that the patient be transported to rehab directly from this facility. Plan (1) Mood disorder 09/09 -mood disorder NOS, differential includes substance-induced depression, personality disorder, unipolar depression and bipolar depression. Based on his report and available records, substance-induced depression versus [place] II disorder seem most likely. It would be helpful to get collateral information, but he states there is no one he will allow us to speak with. -Patient states no medications have worked other than high dose gabapentin. Again reviewed concerns with using this medication (interactions with methadone , abuse potential), and previous OP records from Dr. Pacheco. After discussion of this and the alternatives, agreed to start 100mg tid and see how he responds, titrating as tolerated. It is not the preferred treatment but patient reports previous good response and we can monitor him here for AMS/drug interactions. -Intake was scheduled with [facility] for today, and will need to be rescheduled. -Patient is not eligible for case management, as [place] residence [place] county. He does not have local senior living options due to his past behaviors. Encouraged him to find employment so that he can get his own housing. 09/11 - Continue gabapentin 100mg TID, not titrated today, pt reports historically effective dose of 300mg TID, despite high dose of 1200mg previously - Continue to encourage participation in group programming and working on recovery as able prior to transfer to inpatient rehab on 09/18/1709/12 - increase neurontin to 200mg po TID at pt's request. risks/benefits reviewed. (2) Heroin abuse 09/09 -continue methadone, dose confirmed with [facility]. Get collateral information from his counselor at the methadone clinic. 09/10 - Refer to rehab 09/11 - Accepted to rehab - bed date 09/18/1709/12 - remains motivated and accepting of rehab (3) Cannabis abuse 09/09 -patient has been educated on the risks of ongoing cannabis use, including worsening psychiatric symptoms, drug drug interactions, legal repercussions, decreased motivation, but is not concerned about his use or interested in changing his behavior. Brief intervention was offered and accepted Intervention was greater than 5 min in length. Brief interventions include: 1. Assess Readiness to Quit, 2. Advise: Help Patient to Reduce or Abstain from Alcohol, 3. Agree: Set Specific, Feasible Goals, 4. Assist: Anticipate barriers, Problem-Solving Solutions. Social work to 5. Arrange: Referrals to appropriate treatment. Summary of intervention: The patient is in precontemplation stage with regards to transtheoretical model of change. The patient is advised to decrease alcohol consumption due to depressant effects and risk of interactions with prescription medications. The patient agreed to engage in services at [facility] and will be provided with recovery materials to continue to education self on how to cope with their condition without drinking. (4) Personality disorder Cluster B traits, predominantly borderline and antisocial. Discharge / Aftercare Planning Primary Care Physician: Name: Penny Therapist: Name: Chris Griffin, and rescheduled for 09/23 @10:30 Date of Appointment: Sep 09, 2017 Inpatient Care Manager Rn: Name: Penny Visit Code E&M Code: 09743 Risk Factors Assessment Male: Yes : Yes /single/: Yes Higher / Fall in social status: Yes Health problems: No Mental Health Diagnoses: Yes Substance use disorders: Yes Previous attempt: Yes Family history of suicide: No Previous psychiatric stay: Yes Hopelessness: No Smoker: No Protective Factors Assessment : No Responsible for young children: No Employed: No Stable relationships: No Supportive family: No Good rapport with provider: No Data Vital Signs Last 24 Hrs: Date Time Temp Pulse Resp B/P (MAP) Pulse Ox O2 Delivery O2 Flow Rate FiO2 09/12/17 07:06 36.6 46 16 104/63 66 98/61
[2017-09-13 07:11] VITALS: BP_SYST 108; BP_SYST 111; BP_DIAS 68; PULSE 58; PULSE 66; TEMP 36.6
[2017-09-13] MEDS: METHADONE ORAL SOLN 2 MG/1ML PO SCH (08:39)
[2017-09-13] MEDS: PATIENT'S OWN CONTROLLED MED SCH (08:39)
[2017-09-13] MEDS: GABAPENTIN 100 MG CAP PO SCH (08:39)
[2017-09-13] MEDS: NICOTINE 21 MG/24 HR TDSY EXT SCH (08:40)
--- NOTE | 2017-09-13 13:41 | Psychiatric Progress Notes ---
Progress Note Date of Service Sep 13, 2017. Interval History 32 yo male admitted voluntarily after presenting to the ED with severe depression and suicidality. He was discharge last Thursday from our unit for similar symptoms. Chief Complaint "I am irritable today ". Subjective Patient was seen & assessed interval progress reviewed with Treatment Team. Per staff patient work on recovery protocol yesterday. He did indicate that he felt that he was "shutting down some" and spoke at length with counselor about that. There is some concern for increased irritability which he acknowledges today. He is unable to identify a trigger for this stating that it just feels like things are more irritating overall. "It is no big deal. I'll get over it." States he remains dedicated to pursue rehab. He denies any dizziness or drowsiness so far on increased dose of Neurontin and we again reviewed that his historical therapeutic dose was 300 mg 3 times daily. Review of Systems Constitutional: + problem reported (denies insomnia) Abdomen: No problem reported Psychiatric: + problem reported (mood decline) Sleep Information Total Hours of Sleep: 7.50 Meal Information Percent of Breakfast Consumed: 100 Percent of Lunch Consumed: 100 Percent of Dinner Consumed: 100 Mental Status Exam During interview pt is: alert and oriented, cooperative Appearance: appropriately dressed, appropriately groomed, other (Multiple skull tattoos on bilateral upper extremities) Eye contact is: good Motor behavior is: no abnormal motor movements Speech: normal in rate, rhythm & volume Affect: mood congruent Mood is: irritable Thought process: goal directed, clear, coherent Thought content: reality based without delusions Suicidal thought are: denied Homicidal thoughts are: denied Hallucinations: denies auditory, denies visual Cognition: memory grossly intact, attention grossly intact, language grossly intact Intelligence estimated to be: consistent with level of education Insight: fair Judgement: fair Impression Pt has rehab bed date of 09/18/17 - although psychiatrically stable currently, would not recommend discharge home prior to rehab. Pt had reported several high risk behaviors in the context of SI prior to his 2 recent discharge. Given unemployment, homelessness, and no local supports, it appears most appropriate that the patient be transported to rehab directly from this facility. Plan (1) Mood disorder 09/09 -mood disorder NOS, differential includes substance-induced depression, personality disorder, unipolar depression and bipolar depression. Based on his report and available records, substance-induced depression versus Piercy II disorder seem most likely. It would be helpful to get collateral information, but he states there is no one he will allow us to speak with. -Patient states no medications have worked other than high dose gabapentin. Again reviewed concerns with using this medication (interactions with methadone , abuse potential), and previous OP records from Dr. Pacheco. After discussion of this and the alternatives, agreed to start 100mg tid and see how he responds, titrating as tolerated. It is not the preferred treatment but patient reports previous good response and we can monitor him here for AMS/drug interactions. -Intake was scheduled with [facility] for today, and will need to be rescheduled. -Patient is not eligible for case management, as [place]. He does not have local detention options due to his past behaviors. Encouraged him to find employment so that he can get his own housing. 09/11 - Continue gabapentin 100mg TID, not titrated today, pt reports historically effective dose of 300mg TID, despite high dose of 1200mg previously - Continue to encourage participation in group programming and working on recovery as able prior to transfer to inpatient rehab on 09/18/1709/12 - increase neurontin to 200mg po TID at pt's request. risks/benefits reviewed. 09/13 -Mild mood downtrend evident yesterday afternoon continues. Planning of increased irritability. We will increase gabapentin to 300 mg 3 times daily to address. Tolerating escalation without side effects (2) Heroin abuse 09/09 -continue methadone, dose confirmed with [facility]. Get collateral information from his counselor at the methadone clinic. 09/10 - Refer to rehab 09/11 - Accepted to rehab - bed date 09/18/1709/12 - remains motivated and accepting of rehab (3) Cannabis abuse 09/09 -patient has been educated on the risks of ongoing cannabis use, including worsening psychiatric symptoms, drug drug interactions, legal repercussions, decreased motivation, but is not concerned about his use or interested in changing his behavior. Brief intervention was offered and accepted Intervention was greater than 5 min in length. Brief interventions include: 1. Assess Readiness to Quit, 2. Advise: Help Patient to Reduce or Abstain from Alcohol, 3. Agree: Set Specific, Feasible Goals, 4. Assist: Anticipate barriers, Problem-Solving Solutions. Social work to 5. Arrange: Referrals to appropriate treatment. Summary of intervention: The patient is in precontemplation stage with regards to transtheoretical model of change. The patient is advised to decrease alcohol consumption due to depressant effects and risk of interactions with prescription medications. The patient agreed to engage in services at [facility] and will be provided with recovery materials to continue to education self on how to cope with their condition without drinking. (4) Personality disorder Cluster B traits, predominantly borderline and antisocial. Discharge / Aftercare Planning Primary Care Physician: Name: Penny Therapist: Name: Chris Griffin, and rescheduled for 09/23 @10:30 Date of Appointment: Sep 09, 2017 [employer] Floor: Name: Penny Visit Code E&M Code: 71150 Risk Factors Assessment Male: Yes : Yes /single/: Yes Higher / Fall in social status: Yes Health problems: No Mental Health Diagnoses: Yes Substance use disorders: Yes Previous attempt: Yes Family history of suicide: No Previous psychiatric stay: Yes Hopelessness: No Smoker: No Protective Factors Assessment : No Responsible for young children: No Employed: No Stable relationships: No Supportive family: No Good rapport with provider: No Data Vital Signs Last 24 Hrs: Date Time Temp Pulse Resp B/P (MAP) Pulse Ox O2 Delivery O2 Flow Rate FiO2 09/13/17 07:11 36.6 58 16 108/68 66 111/68 Meds Administered Last 24 Hrs: Meds Administered (Past 24Hrs) Medications (Trade) Dose Ordered Sig/Liam Route Start Time Stop Time Status Last Admin Dose Admin Gabapentin (Neurontin Cap) 200 mg TID PO 09/12/17 15:00 10/09/17 14:59 09/13/17 08:39 200 MG
[2017-09-13] MEDS: GABAPENTIN 300 MG CAP PO SCH ×2 (14:33→21:35)
[2017-09-14 07:01] VITALS: BP_SYST 104; BP_SYST 96; BP_DIAS 58; BP_DIAS 62; PULSE 48; PULSE 62; TEMP 36.6
[2017-09-14] MEDS: METHADONE ORAL SOLN 2 MG/1ML PO SCH (08:11)
[2017-09-14] MEDS: PATIENT'S OWN CONTROLLED MED SCH (08:11)
[2017-09-14] MEDS: GABAPENTIN 300 MG CAP PO SCH ×3 (08:11→21:19)
[2017-09-14] MEDS: NICOTINE 21 MG/24 HR TDSY EXT SCH (08:15)
[2017-09-14] MEDS: NICOTINE 14 MG/24 HR TDSY TD SCH (09:58)
--- NOTE | 2017-09-14 11:04 | Psychiatric Progress Notes ---
Progress Note Date of Service Sep 14, 2017. Interval History 32 yo male admitted voluntarily after presenting to the ED with severe depression and suicidality. He was discharge last Thursday from our unit for similar symptoms. Chief Complaint "Yeah the weekend was good. We made a few med changes". Subjective Patient was seen & assessed interval progress reviewed with Treatment Team. Staff report the patient mentioned possible interest in a family meeting with his ex-. Pt was seen today to assess progress since admission. He states he has been doing well. His dose of gabapentin was increased to 300mg TID over the weekend, and he has noticed improvement in his mood since this change. Pt states, "my mood was pretty bad, up and down, until this new dose." Pt explains that he has historically found this dose of gabapentin helpful for his mood, and had been placed on higher doses due to development of nerve pain in his abdomen, finding 1200mg TID "excessive" for mood alone. Pt states he will need to find a ride to rehab, but feels confident he will be able to arrange this. He reports a goal for smoking cessation prior to or during rehab, stating he has been requesting decreases in his nicotine patch doses. Pt denies issues with appetite or sleep. Denies ongoing SI. Review of Systems Psych: denies symptoms other than stated above Constitutional: denied Cardiovascular: denied GI: denied Neurologic: denied Remainder of 10 body systems also reviewed and denied other than noted above. Sleep Information Total Hours of Sleep: 7.50 Meal Information Percent of Breakfast Consumed: 100 Percent of Lunch Consumed: 100 Percent of Dinner Consumed: 100 Mental Status Exam During interview pt is: alert and oriented, cooperative Appearance: appropriately dressed, appropriately groomed, other (Multiple skull tattoos on bilateral upper extremities) Eye contact is: good Motor behavior is: no abnormal motor movements Speech: normal in rate, rhythm & volume Affect: mood congruent, euthymic (rather bubbly) Mood is: other ("pretty good") Thought process: goal directed, clear, coherent Thought content: reality based without delusions Suicidal thought are: denied Homicidal thoughts are: denied Hallucinations: denies auditory, denies visual Cognition: memory grossly intact, attention grossly intact, language grossly intact Intelligence estimated to be: consistent with level of education Insight: fair Judgement: fair Impression Pt has rehab bed date of 09/18/17 - although psychiatrically stable currently, would not recommend discharge home prior to rehab. Gabapentin increased to 300mg TID over the weekend, which has reportedly been beneficial for his mood. Pt had reported several high risk behaviors in the context of SI prior to his 2 recent discharge. Given unemployment, homelessness, and no local supports, it appears most appropriate that the patient be transported to rehab directly from this facility. Plan (1) Mood disorder 09/09 -mood disorder NOS, differential includes substance-induced depression, personality disorder, unipolar depression and bipolar depression. Based on his report and available records, substance-induced depression versus Deer II disorder seem most likely. It would be helpful to get collateral information, but he states there is no one he will allow us to speak with. -Patient states no medications have worked other than high dose gabapentin. Again reviewed concerns with using this medication (interactions with methadone , abuse potential), and previous OP records from Dr. Pacheco. After discussion of this and the alternatives, agreed to start 100mg tid and see how he responds, titrating as tolerated. It is not the preferred treatment but patient reports previous good response and we can monitor him here for AMS/drug interactions. -Intake was scheduled with [facility] for today, and will need to be rescheduled. -Patient is not eligible for case management, as [place]. He does not have local assisted options due to his past behaviors. Encouraged him to find employment so that he can get his own housing. 09/11 - Continue gabapentin 100mg TID, not titrated today, pt reports historically effective dose of 300mg TID, despite high dose of 1200mg previously - Continue to encourage participation in group programming and working on recovery as able prior to transfer to inpatient rehab on 09/18/1709/12 - increase neurontin to 200mg po TID at pt's request. risks/benefits reviewed. 09/13 -Mild mood downtrend evident yesterday afternoon continues. Planning of increased irritability. We will increase gabapentin to 300 mg 3 times daily to address. Tolerating escalation without side effects 09/14 - Continue gabapentin 300mg TID (2) Heroin abuse 09/09 -continue methadone, dose confirmed with [facility]. Get collateral information from his counselor at the methadone clinic. 09/10 - Refer to rehab 09/11 - Accepted to rehab - bed date 09/18/1709/12 - remains motivated and accepting of rehab (3) Cannabis abuse 09/09 -patient has been educated on the risks of ongoing cannabis use, including worsening psychiatric symptoms, drug drug interactions, legal repercussions, decreased motivation, but is not concerned about his use or interested in changing his behavior. Brief intervention was offered and accepted Intervention was greater than 5 min in length. Brief interventions include: 1. Assess Readiness to Quit, 2. Advise: Help Patient to Reduce or Abstain from Alcohol, 3. Agree: Set Specific, Feasible Goals, 4. Assist: Anticipate barriers, Problem-Solving Solutions. Social work to 5. Arrange: Referrals to appropriate treatment. Summary of intervention: The patient is in precontemplation stage with regards to transtheoretical model of change. The patient is advised to decrease alcohol consumption due to depressant effects and risk of interactions with prescription medications. The patient agreed to engage in services at [facility] and will be provided with recovery materials to continue to education self on how to cope with their condition without drinking. (4) Personality disorder Cluster B traits, predominantly borderline and antisocial. Discharge / Aftercare Planning Primary Care Physician: Name: Penny Therapist: Name: Chris Griffin, and rescheduled for 09/23 @10:30 Date of Appointment: Sep 09, 2017 [employer]ushing [employer] Operator: Name: Penny Visit Code E&M Code: 72832 Risk Factors Assessment Male: Yes : Yes /single/: Yes Higher / Fall in social status: Yes Health problems: No Mental Health Diagnoses: Yes Substance use disorders: Yes Previous attempt: Yes Family history of suicide: No Previous psychiatric stay: Yes Hopelessness: No Smoker: No Protective Factors Assessment : No Responsible for young children: No Employed: No Stable relationships: No Supportive family: No Good rapport with provider: No Data Vital Signs Last 24 Hrs: Date Time Temp Pulse Resp B/P (MAP) Pulse Ox O2 Delivery O2 Flow Rate FiO2 09/14/17 07:01 36.6 48 16 96/58 62 104/62 Meds Administered Last 24 Hrs: Meds Administered (Past 24Hrs) Medications (Trade) Dose Ordered Sig/Liam Route Start Time Stop Time Status Last Admin Dose Admin Gabapentin (Neurontin Cap) 200 mg TID PO 09/12/17 15:00 09/13/17 13:42 DC 09/13/17 08:39 200 MG Gabapentin (Neurontin Cap) 300 mg TID PO 09/13/17 14:00 10/09/17 14:59 09/14/17 08:11 300 MG Nicotine (Nicoderm Cq 14MG Patch) 1 patch QAM TD 09/14/17 09:00 10/14/17 08:59 09/14/17 09:58 1 PATCH
[2017-09-15 02:58] VITALS: Ht 172.7 cm; Wt 69.3 kg
[2017-09-15 06:55] VITALS: BP_SYST 101; BP_SYST 108; BP_DIAS 62; BP_DIAS 63; PULSE 56; PULSE 71; TEMP 36.4
[2017-09-15] MEDS: GABAPENTIN 300 MG CAP PO SCH ×3 (08:17→21:09)
[2017-09-15] MEDS: METHADONE ORAL SOLN 2 MG/1ML PO SCH (08:20)
[2017-09-15] MEDS: PATIENT'S OWN CONTROLLED MED SCH (08:20)
[2017-09-15] MEDS: NICOTINE 14 MG/24 HR TDSY TD SCH (08:21)
--- NOTE | 2017-09-15 15:59 | Psychiatric Progress Notes ---
Progress Note Date of Service Sep 15, 2017. Interval History 32 yo male admitted voluntarily after presenting to the ED with severe depression and suicidality. He was discharge last Thursday from our unit for similar symptoms. Chief Complaint "What's up?". Subjective Patient was seen & assessed interval progress reviewed with Treatment Team. The patient says that he has no needs today. He is awaiting rehab on 09/18, remaining committed to getting off of methadone. He denies problems with sleep appetite, or motivations. he has arranged for his father to pick him up on Thursday to take him to [place] for rehab. He denies SI. Review of Systems Constitutional: No fever, No chills, No sweats, No weight loss, No weakness, No fatigue, No problem reported ENT: No hearing loss, No unusual epistaxis, No nasal symptoms, No sore throat, No tinnitus, No dental problems, No trouble swallowing, No problem reported Respiratory: No cough, No sputum, No wheezing, No shortness of breath, No dyspnea on exertion, No dyspnea at rest, No hemoptysis, No problem reported Cardiovascular: No chest pain, No orthopnea, No PND, No edema, No claudication , No palpitations, No problem reported Abdomen: No pain, No nausea, No vomiting, No diarrhea, No constipation, No GI bleeding, No problem reported Musculoskeletal: No joint pain, No muscle pain, No swelling, No calf pain, No problem reported Neurologic: No memory loss, No paralysis, No weakness, No numbness/tingling, No vertigo, No balance problems, No problem reported Psychiatric: No depression symptoms, No anhedonism, No anxiety, No insomnia, No substance abuse, No problem reported Integumentary: No rash, No itch, No new/changing skin lesions, No color change , No bleeding, No problem reported Sleep Information Total Hours of Sleep: 9.25 Meal Information Percent of Breakfast Consumed: 100 Percent of Lunch Consumed: 100 Percent of Dinner Consumed: 100 Mental Status Exam During interview pt is: alert and oriented, cooperative Appearance: appropriately dressed, appropriately groomed, other (Multiple skull tattoos on bilateral upper extremities) Eye contact is: good Motor behavior is: no abnormal motor movements Speech: normal in rate, rhythm & volume Affect: mood congruent, euthymic Mood is: other ("pretty good") Thought process: goal directed, clear, coherent Thought content: reality based without delusions Suicidal thought are: denied Homicidal thoughts are: denied Hallucinations: denies auditory, denies visual Cognition: memory grossly intact, attention grossly intact, language grossly intact Intelligence estimated to be: consistent with level of education Insight: fair Judgement: fair Impression Pt has rehab bed date of 09/18/17 - although psychiatrically stable currently, would not recommend discharge home prior to rehab. He remains committed to getting off of methadone, medications have been adjusted. Continue current meds and plan. Plan (1) Mood disorder 09/09 -mood disorder NOS, differential includes substance-induced depression, personality disorder, unipolar depression and bipolar depression. Based on his report and available records, substance-induced depression versus [place] II disorder seem most likely. It would be helpful to get collateral information, but he states there is no one he will allow us to speak with. -Patient states no medications have worked other than high dose gabapentin. Again reviewed concerns with using this medication (interactions with methadone , abuse potential), and previous OP records from Dr. Pacheco. After discussion of this and the alternatives, agreed to start 100mg tid and see how he responds, titrating as tolerated. It is not the preferred treatment but patient reports previous good response and we can monitor him here for AMS/drug interactions. -Intake was scheduled with [facility] for today, and will need to be rescheduled. -Patient is not eligible for case management, as [place]. He does not have local fpc options due to his past behaviors. Encouraged him to find employment so that he can get his own housing. 09/11 - Continue gabapentin 100mg TID, not titrated today, pt reports historically effective dose of 300mg TID, despite high dose of 1200mg previously - Continue to encourage participation in group programming and working on recovery as able prior to transfer to inpatient rehab on 09/18/1709/12 - increase neurontin to 200mg po TID at pt's request. risks/benefits reviewed. 09/13 -Mild mood downtrend evident yesterday afternoon continues. Planning of increased irritability. We will increase gabapentin to 300 mg 3 times daily to address. Tolerating escalation without side effects 09/14 - Continue gabapentin 300mg TID j09/15 - Mood stable as he awaits rehab (2) Heroin abuse 09/09 -continue methadone, dose confirmed with [facility]. Get collateral information from his counselor at the methadone clinic. 09/10 - Refer to rehab 09/11 - Accepted to rehab - bed date 09/18/1709/12 - remains motivated and accepting of rehab 09/15 - Accepted to [facility] rehab with admit 09/18 (3) Cannabis abuse 09/09 -patient has been educated on the risks of ongoing cannabis use, including worsening psychiatric symptoms, drug drug interactions, legal repercussions, decreased motivation, but is not concerned about his use or interested in changing his behavior. Brief intervention was offered and accepted Intervention was greater than 5 min in length. Brief interventions include: 1. Assess Readiness to Quit, 2. Advise: Help Patient to Reduce or Abstain from Alcohol, 3. Agree: Set Specific, Feasible Goals, 4. Assist: Anticipate barriers, Problem-Solving Solutions. Social work to 5. Arrange: Referrals to appropriate treatment. Summary of intervention: The patient is in precontemplation stage with regards to transtheoretical model of change. The patient is advised to decrease alcohol consumption due to depressant effects and risk of interactions with prescription medications. The patient agreed to engage in services at [facility] and will be provided with recovery materials to continue to education self on how to cope with their condition without drinking. (4) Personality disorder Cluster B traits, predominantly borderline and antisocial. Discharge / Aftercare Planning Primary Care Physician: Name: Penny Therapist: Name: Chris Griffin, and rescheduled for 09/23 @10:30 Date of Appointment: Sep 09, 2017 Felled Seam Operator: Name: Penny Visit Code E&M Code: 25234 Risk Factors Assessment Male: Yes : Yes /single/: Yes Higher / Fall in social status: Yes Health problems: No Mental Health Diagnoses: Yes Substance use disorders: Yes Previous attempt: Yes Family history of suicide: No Previous psychiatric stay: Yes Hopelessness: No Smoker: No Protective Factors Assessment : No Responsible for young children: No Employed: No Stable relationships: No Supportive family: No Good rapport with provider: No Data Vital Signs Last 24 Hrs: Date Time Temp Pulse Resp B/P (MAP) Pulse Ox O2 Delivery O2 Flow Rate FiO2 09/15/17 06:55 36.4 56 16 108/62 71 101/63 Meds Administered Last 24 Hrs: Meds Administered (Past 24Hrs) Medications (Trade) Dose Ordered Sig/Liam Route Start Time Stop Time Status Last Admin Dose Admin Nicotine (Nicoderm Cq 14MG Patch) 1 patch QAM TD 09/14/17 09:00 10/14/17 08:59 09/15/17 08:21 1 PATCH Miscellaneous (Remove Nicoderm Patch) 1 ea HS N/A 09/14/17 22:00 10/14/17 21:59 09/14/17 21:20 1 EA Lab Results Last 24 Hrs: 09/08/17 19:58 Red Blood Count 4.04, Mean Corpuscular Volume 96.5, Mean Corpuscular Hemoglobin 32.2, Mean Corpuscular Hemoglobin Concent 33.3, Mean Platelet Volume 10.7, Neutrophils (%) (Auto) 49.7, Lymphocytes (%) (Auto) 41.6, Monocytes (%) (Auto) 7.0, Eosinophils (%) (Auto) 1.2, Basophils (%) (Auto) 0.3, Neutrophils # (Auto) 2.99, Lymphocytes # (Auto) 2.50, Monocytes # (Auto) 0.42, Eosinophils # (Auto) 0.07, Basophils # (Auto) 0.02 09/08/17 19:58 Test 09/08/17 19:20 09/08/17 19:58 Urine Color YELLOW Urine Appearance CLEAR (CLEAR) Urine pH 7.5 (4.5-7.5) Urine Specific [place] 1.008 (1.000-1.030) Urine Protein NEG (NEG) Urine Glucose (UA) NEG (NEG) Urine Ketones NEG (NEG) Urine Occult Blood NEG (NEG) Urine Nitrite NEG (NEG) Urine Bilirubin NEG (NEG) Urine Urobilinogen NEG (NEG) Urine Leukocyte Esterase NEG (NEG) Urine Opiates Screen NEG (NEG) Urine Methadone, Qualitative POS (NEG) Urine Methadone Metabolites 2780 NG/ML (ILOOHI=[id number]) Urine Methadone Confirm 1390 NG/ML (MSWUTH=753) Urine Barbiturates NEG (NEG) Urine Phencyclidine (PCP) Level NEG (NEG) Ur Amphetamine/Methamphetamine NEG (NEG) MDMA (Ecstasy) Screen NEG (NEG) Urine Benzodiazepines Screen NEG (NEG) Urine Cocaine Metabolite NEG (NEG) Urine Marijuana (THC) POS (NEG) Urine Marijuana (THC Carboxy Acid) 97 NG/ML (CUTOFF=5) White Blood Count 6.01 K/uL (4.8-10.8) Red Blood Count 4.04 M/uL (4.7-6.1) Hemoglobin 13.0 g/dL (14.0-18.0) Hematocrit 39.0 % (42-52) Mean Corpuscular Volume 96.5 fL (80-100) Mean Corpuscular Hemoglobin 32.2 pg (25-34) Mean Corpuscular Hemoglobin Concent 33.3 g/dl (32-36) Platelet Count 195 K/uL (130-400) Mean Platelet Volume 10.7 fL (7.4-10.4) Neutrophils (%) (Auto) 49.7 % Lymphocytes (%) (Auto) 41.6 % Monocytes (%) (Auto) 7.0 % Eosinophils (%) (Auto) 1.2 % Basophils (%) (Auto) 0.3 % Neutrophils # (Auto) 2.99 K/uL (1.4-6.5) Lymphocytes # (Auto) 2.50 K/uL (1.2-3.4) Monocytes # (Auto) 0.42 K/uL (0.11-0.59) Eosinophils # (Auto) 0.07 K/uL (0-0.5) Basophils # (Auto) 0.02 K/uL (0-0.2) RDW Standard Deviation 52.2 fL (36.4-46.3) RDW Coefficient of Variation 14.8 % (11.5-14.5) Immature Granulocyte % (Auto) 0.2 % Immature Granulocyte # (Auto) 0.01 K/uL (0.00-0.02) Anion Gap 6.0 mmol/L (3-11) Est Creatinine Clear Calc Drug Dose 126.2 ml/min Estimated GFR () 136.6 Estimated GFR (Non- 117.8 BUN/Creatinine Ratio 9.4 (10-20) Bedside Glucose 79 mg/dl (70-99) Calcium Level 9.1 mg/dl (8.5-10.1) Total Bilirubin 0.4 mg/dl (0.2-1) Direct Bilirubin 0.1 mg/dl (0-0.2) Aspartate Amino Transf (AST/SGOT) 39 U/L (15-37) Alanine Aminotransferase (ALT/SGPT) 71 U/L (12-78) Alkaline Phosphatase 44 U/L (45-117) Total Protein 7.0 gm/dl (6.4-8.2) Albumin 3.8 gm/dl (3.4-5.0) Thyroid Stimulating Hormone (TSH) 3.040 uIu/ml (0.300-4.500) Ethyl Alcohol mg/dL < 3.0 mg/dl (0-3)
[2017-09-16 07:02] VITALS: BP_SYST 95; BP_DIAS 55; BP_DIAS 56; PULSE 46; PULSE 58; TEMP 36.5
[2017-09-16] MEDS: METHADONE ORAL SOLN 2 MG/1ML PO SCH (08:22)
[2017-09-16] MEDS: NICOTINE 14 MG/24 HR TDSY TD SCH (08:22)
[2017-09-16] MEDS: GABAPENTIN 300 MG CAP PO SCH ×3 (08:22→20:44)
[2017-09-16] MEDS: PATIENT'S OWN CONTROLLED MED SCH (08:22)
--- NOTE | 2017-09-16 08:37 | Psychiatric Progress Notes ---
Progress Note Date of Service Sep 16, 2017. Interval History 32 yo male admitted voluntarily after presenting to the ED with severe depression and suicidality. He was discharge last Thursday from our unit for similar symptoms. Chief Complaint "Good, real good ". Subjective Patient was seen & assessed interval progress reviewed with Treatment Team. Staff report he is going to groups and participating, and remains willing for rehab, with bed date scheduled on Thursday. On my assessment, he states that he is reading a book about recovery, and writing song lyrics. He remains motivated and willing for transfer to rehab at the end of the week. He is attending groups and feels they are helpful. He denies suicidal thoughts. He states that he has not yet reached out to his ex-, as "I wasn't in the right mood that day, I had a feeling she wasn't in the right mood either, but maybe today's the day." He says he has not talked to his ex-in about a year, since the last time he was in rehab. He did see his kids about a month ago, and hopes that if he talks to his ex-, he can reinitiate contact with his children. Sleep Information Total Hours of Sleep: 7.50 Meal Information Percent of Breakfast Consumed: 100 Percent of Lunch Consumed: 100 Percent of Dinner Consumed: 100 Mental Status Exam During interview pt is: alert and oriented, cooperative Appearance: appropriately dressed, appropriately groomed, other (Multiple skull tattoos on bilateral upper extremities) Eye contact is: good Motor behavior is: steady gait & station, no abnormal motor movements Speech: loud Affect: mood congruent, euthymic (Mildly expansive) Mood is: other ("Good, real good.") Thought process: goal directed, clear, coherent Thought content: reality based without delusions Suicidal thought are: denied Homicidal thoughts are: denied Hallucinations: denies auditory, denies visual Cognition: memory grossly intact, attention grossly intact, language grossly intact Intelligence estimated to be: consistent with level of education Insight: fair Judgement: fair Impression Pt has rehab bed date of 09/18/17 - although psychiatrically stable currently in the setting of the inpatient unit, would not recommend discharge home prior to rehab, due to the high risk of relapse and return of suicidality and impulsive suicide attempts, which have happened twice in the past month. He remains committed to getting off of methadone, and will also benefit from a longer period of sobriety/stability in a controlled setting while in rehab. Medications have been restarted and adjusted. Continue current meds and plan. Plan (1) Mood disorder 09/09 -mood disorder NOS, differential includes substance-induced depression, personality disorder, unipolar depression and bipolar depression. Based on his report and available records, substance-induced depression versus [place] II disorder seem most likely. It would be helpful to get collateral information, but he states there is no one he will allow us to speak with. -Patient states no medications have worked other than high dose gabapentin. Again reviewed concerns with using this medication (interactions with methadone , abuse potential), and previous OP records from Dr. Pacheco. After discussion of this and the alternatives, agreed to start 100mg tid and see how he responds, titrating as tolerated. It is not the preferred treatment but patient reports previous good response and we can monitor him here for AMS/drug interactions. -Intake was scheduled with [facility] for today, and will need to be rescheduled. -Patient is not eligible for case management, as [place] residence [place] county. He does not have local group home options due to his past behaviors. Encouraged him to find employment so that he can get his own housing. 09/11 - Continue gabapentin 100mg TID, not titrated today, pt reports historically effective dose of 300mg TID, despite high dose of 1200mg previously - Continue to encourage participation in group programming and working on recovery as able prior to transfer to inpatient rehab on 09/18/1709/12 - increase neurontin to 200mg po TID at pt's request. risks/benefits reviewed. 09/13 - Mild mood downtrend evident yesterday afternoon continues. Planning of increased irritability. We will increase gabapentin to 300 mg 3 times daily to address. Tolerating escalation without side effects 09/14 - Continue gabapentin 300mg TID 09/15 - Mood stable as he awaits rehab 09/16 -Patient willing for a family meeting with his ex- today. (2) Heroin abuse 09/09 -continue methadone, dose confirmed with [facility]. Get collateral information from his counselor at the methadone clinic. 09/10 - Refer to rehab 09/11 - Accepted to rehab - bed date 09/18/1709/12 - remains motivated and accepting of rehab 09/15 - [facility]ed [facility] with [facility] 09/18 (3) Cannabis abuse 09/09 -patient has been educated on the risks of ongoing cannabis use, including worsening psychiatric symptoms, drug drug interactions, legal repercussions, decreased motivation, but is not concerned about his use or interested in changing his behavior. Brief intervention was offered and accepted Intervention was greater than 5 min in length. Brief interventions include: 1. Assess Readiness to Quit, 2. Advise: Help Patient to Reduce or Abstain from Alcohol, 3. Agree: Set Specific, Feasible Goals, 4. Assist: Anticipate barriers, Problem-Solving Solutions. Social work to 5. Arrange: Referrals to appropriate treatment. Summary of intervention: The patient is in precontemplation stage with regards to transtheoretical model of change. The patient is advised to decrease alcohol consumption due to depressant effects and risk of interactions with prescription medications. The patient agreed to engage in services at [facility] and will be provided with recovery materials to continue to education self on how to cope with their condition without drinking. (4) Personality disorder Cluster B traits, predominantly borderline and antisocial. Discharge / Aftercare Planning Primary Care Physician: Name: Penny Therapist: Name: Chris Griffin, and rescheduled for 09/23 @10:30 Date of Appointment: Sep 09, 2017 Vulcanizer: Name: Penny Visit Code E&M Code: 95793 Risk Factors Assessment Male: Yes : Yes /single/: Yes Higher / Fall in social status: Yes Health problems: No Mental Health Diagnoses: Yes Substance use disorders: Yes Previous attempt: Yes Family history of suicide: No Previous psychiatric stay: Yes Hopelessness: No Smoker: No Protective Factors Assessment : No Responsible for young children: No Employed: No Stable relationships: No Supportive family: No Good rapport with provider: No Data Vital Signs Last 24 Hrs: Date Time Temp Pulse Resp B/P (MAP) Pulse Ox O2 Delivery O2 Flow Rate FiO2 09/16/17 07:02 36.5 46 16 95/55 58 95/56 Meds Administered Last 24 Hrs: Meds Administered (Past 24Hrs) Medications (Trade) Dose Ordered Sig/Liam Route Start Time Stop Time Status Last Admin Dose Admin Nicotine (Nicoderm Cq 14MG Patch) 1 patch QAM TD 09/14/17 09:00 10/14/17 08:59 09/16/17 08:22 1 PATCH Miscellaneous (Remove Nicoderm Patch) 1 ea HS N/A 09/14/17 22:00 10/14/17 21:59 09/16/17 08:22 1 EA
[2017-09-17 07:36] VITALS: BP 112/66; PULSE 53; TEMP 36.5
[2017-09-17] MEDS: NICOTINE 14 MG/24 HR TDSY TD SCH (08:20)
[2017-09-17] MEDS: GABAPENTIN 300 MG CAP PO SCH ×3 (08:21→21:22)
[2017-09-17] MEDS: METHADONE ORAL SOLN 2 MG/1ML PO SCH (08:24)
--- NOTE | 2017-09-17 12:25 | Psychiatric Progress Notes ---
Progress Note Date of Service Sep 17, 2017. Interval History 32 yo male admitted voluntarily after presenting to the ED with severe depression and suicidality. He was discharge last Thursday from our unit for similar symptoms. Chief Complaint "Great1". Subjective Patient was seen & assessed interval progress reviewed with Treatment Team. The patient continues to be a good participant in groups as he waits to go to rehab tomorrow. He is concerned because he understands the the rehab is a only a 3 week program and he is concerned that they will not be able to wean him off of methadone in the time frame. If not, he says that he is hopeful that he will get below 30 mg which he believes is a level at which he can continue to wean himself. He otherwise says that he thinks this is "my last chance" to work toward getting off of all opiates and remain sober. His mood is "great" and he feels ready to go tomorrow. Father will pick him up at 1000 Review of Systems Constitutional: No fever, No chills, No sweats, No weight loss, No weakness, No fatigue, No problem reported ENT: No hearing loss, No unusual epistaxis, No nasal symptoms, No sore throat, No tinnitus, No dental problems, No trouble swallowing, No problem reported Respiratory: No cough, No sputum, No wheezing, No shortness of breath, No dyspnea on exertion, No dyspnea at rest, No hemoptysis, No problem reported Cardiovascular: No chest pain, No orthopnea, No PND, No edema, No claudication , No palpitations, No problem reported Abdomen: No pain, No nausea, No vomiting, No diarrhea, No constipation, No GI bleeding, No problem reported Musculoskeletal: No joint pain, No muscle pain, No swelling, No calf pain, No problem reported Neurologic: No memory loss, No paralysis, No weakness, No numbness/tingling, No vertigo, No balance problems, No problem reported Psychiatric: No depression symptoms, No anhedonism, No anxiety, No insomnia, No substance abuse, No problem reported Integumentary: No rash, No itch, No new/changing skin lesions, No color change , No bleeding, No problem reported Sleep Information Total Hours of Sleep: 6.50 Meal Information Percent of Breakfast Consumed: 100 Percent of Lunch Consumed: 100 Percent of Dinner Consumed: 100 Mental Status Exam During interview pt is: alert and oriented, cooperative Appearance: appropriately dressed, appropriately groomed, other (Multiple skull tattoos on bilateral upper extremities) Eye contact is: good Motor behavior is: steady gait & station, no abnormal motor movements Speech: loud Affect: mood congruent, euthymic Mood is: other ("Great") Thought process: goal directed, clear, coherent Thought content: reality based without delusions Suicidal thought are: denied Homicidal thoughts are: denied Hallucinations: denies auditory, denies visual Cognition: memory grossly intact, attention grossly intact, language grossly intact Intelligence estimated to be: consistent with level of education Insight: fair Judgement: fair Impression Pt has rehab bed date of 09/18/17 - although psychiatrically stable currently in the setting of the inpatient unit, would not recommend discharge home prior to rehab, due to the high risk of relapse and return of suicidality and impulsive suicide attempts, which have happened twice in the past month. He remains committed to getting off of methadone, and will also benefit from a longer period of sobriety/stability in a controlled setting while in rehab. Medications have been restarted and adjusted. Continue current meds and plan. Plan (1) Mood disorder 09/09 -mood disorder NOS, differential includes substance-induced depression, personality disorder, unipolar depression and bipolar depression. Based on his report and available records, substance-induced depression versus [place] II disorder seem most likely. It would be helpful to get collateral information, but he states there is no one he will allow us to speak with. -Patient states no medications have worked other than high dose gabapentin. Again reviewed concerns with using this medication (interactions with methadone , abuse potential), and previous OP records from Dr. Pacheco. After discussion of this and the alternatives, agreed to start 100mg tid and see how he responds, titrating as tolerated. It is not the preferred treatment but patient reports previous good response and we can monitor him here for AMS/drug interactions. -Intake was scheduled with [facility] for today, and will need to be rescheduled. -Patient is not eligible for case management, as [place]. He does not have local long-term options due to his past behaviors. Encouraged him to find employment so that he can get his own housing. 09/11 - Continue gabapentin 100mg TID, not titrated today, pt reports historically effective dose of 300mg TID, despite high dose of 1200mg previously - Continue to encourage participation in group programming and working on recovery as able prior to transfer to inpatient rehab on 09/18/1709/12 - increase neurontin to 200mg po TID at pt's request. risks/benefits reviewed. 09/13 - Mild mood downtrend evident yesterday afternoon continues. Planning of increased irritability. We will increase gabapentin to 300 mg 3 times daily to address. Tolerating escalation without side effects 09/14 - Continue gabapentin 300mg TID 09/15 - Mood stable as he awaits rehab 09/16 -Patient willing for a family meeting with his ex- today. 09/17 - Transfer to rehab tomorrow (2) Heroin abuse 09/09 -continue methadone, dose confirmed with [facility]. Get collateral information from his counselor at the methadone clinic. 09/10 - Refer to rehab 09/11 - Accepted to rehab - bed date 09/18/1709/12 - remains motivated and accepting of rehab 09/15 - [facility] (3) Cannabis abuse 09/09 -patient has been educated on the risks of ongoing cannabis use, including worsening psychiatric symptoms, drug drug interactions, legal repercussions, decreased motivation, but is not concerned about his use or interested in changing his behavior. Brief intervention was offered and accepted Intervention was greater than 5 min in length. Brief interventions include: 1. Assess Readiness to Quit, 2. Advise: Help Patient to Reduce or Abstain from Alcohol, 3. Agree: Set Specific, Feasible Goals, 4. Assist: Anticipate barriers, Problem-Solving Solutions. Social work to 5. Arrange: Referrals to appropriate treatment. Summary of intervention: The patient is in precontemplation stage with regards to transtheoretical model of change. The patient is advised to decrease alcohol consumption due to depressant effects and risk of interactions with prescription medications. The patient agreed to engage in services at [place] and will be provided with recovery materials to continue to education self on how to cope with their condition without drinking. (4) Personality disorder Cluster B traits, predominantly borderline and antisocial. Discharge / Aftercare Planning Primary Care Physician: Name: Penny Therapist: Name: Chris Griffin, and rescheduled for 09/23 @10:30 Date of Appointment: Sep 09, 2017 Melt Superintendant: Name: Penny Visit Code E&M Code: 66795 Risk Factors Assessment Male: Yes : Yes /single/: Yes Higher / Fall in social status: Yes Health problems: No Mental Health Diagnoses: Yes Substance use disorders: Yes Previous attempt: Yes Family history of suicide: No Previous psychiatric stay: Yes Hopelessness: No Smoker: No Protective Factors Assessment : No Responsible for young children: No Employed: No Stable relationships: No Supportive family: No Good rapport with provider: No Data Vital Signs Last 24 Hrs: Date Time Temp Pulse Resp B/P (MAP) Pulse Ox O2 Delivery O2 Flow Rate FiO2 09/17/17 07:36 36.5 53 16 112/66 Meds Administered Last 24 Hrs: Current Inpatient Medications Medications (Trade) Dose Ordered Sig/Liam Route Start Time Stop Time Status Last Admin Dose Admin Acetaminophen (Tylenol Tab) 650 mg Q4H PRN PO 09/08/17 22:45 10/08/17 22:44 Al Hydroxide/Mg Hydroxide (Maalox Susp) 30 ml Q4H PRN PO 09/08/17 22:45 10/08/17 22:44 Bismuth Subsalicylate (Kaopectate Liqd) 15 ml DAILY PRN PO 09/08/17 22:45 10/08/17 22:44 Magnesium Hydroxide (Milk Of Magnesia Susp) 30 ml DAILY PRN PO 09/08/17 22:45 10/08/17 22:44 Sodium Chloride ([place] Nasal [place]) PRN PRN NA 09/08/17 22:45 10/08/17 22:44 Hydroxyzine HCl (Vistaril Tab) 50 mg HSZ PRN PO 09/08/17 22:45 10/08/17 22:44 Hydroxyzine HCl (Vistaril Tab) 25 mg Q4H PRN PO 09/08/17 22:45 10/08/17 22:44 Methadone HCl (Methadone HCl) 92 mg DAILY PO 09/10/17 09:00 09/24/17 08:59 09/17/17 08:24 92 MG Non-Formulary Medication (Patient'S Own Controlled Med) 1 ea DAILY N/A 09/09/17 10:00 09/23/17 09:59 Gabapentin (Neurontin Cap) 300 mg TID PO 09/13/17 14:00 10/09/17 14:59 09/17/17 08:21 300 MG Nicotine (Nicoderm Cq 14MG Patch) 1 patch QAM TD 09/14/17 09:00 10/14/17 08:59 09/17/17 08:20 1 PATCH Miscellaneous (Remove Nicoderm Patch) 1 ea HS N/A 09/14/17 22:00 10/14/17 21:59 09/16/17 08:22 1 EA Lab Results Last 24 Hrs: 09/08/17 19:58 Red Blood Count 4.04, Mean Corpuscular Volume 96.5, Mean Corpuscular Hemoglobin 32.2, Mean Corpuscular Hemoglobin Concent 33.3, Mean Platelet Volume 10.7, Neutrophils (%) (Auto) 49.7, Lymphocytes (%) (Auto) 41.6, Monocytes (%) (Auto) 7.0, Eosinophils (%) (Auto) 1.2, Basophils (%) (Auto) 0.3, Neutrophils # (Auto) 2.99, Lymphocytes # (Auto) 2.50, Monocytes # (Auto) 0.42, Eosinophils # (Auto) 0.07, Basophils # (Auto) 0.02 09/08/17 19:58 Test 09/08/17 19:20 09/08/17 19:58 Urine Color YELLOW Urine Appearance CLEAR (CLEAR) Urine pH 7.5 (4.5-7.5) Urine Specific [place] 1.008 (1.000-1.030) Urine Protein NEG (NEG) Urine Glucose (UA) NEG (NEG) Urine Ketones NEG (NEG) Urine Occult Blood NEG (NEG) Urine Nitrite NEG (NEG) Urine Bilirubin NEG (NEG) Urine Urobilinogen NEG (NEG) Urine Leukocyte Esterase NEG (NEG) Urine Opiates Screen NEG (NEG) Urine Methadone, Qualitative POS (NEG) Urine Methadone Metabolites 2780 NG/ML (JCNJCB=539) Urine Methadone Confirm 1390 NG/ML (PCZGGR=102) Urine Barbiturates NEG (NEG) Urine Phencyclidine (PCP) Level NEG (NEG) Ur Amphetamine/Methamphetamine NEG (NEG) MDMA (Ecstasy) Screen NEG (NEG) Urine Benzodiazepines Screen NEG (NEG) Urine Cocaine Metabolite NEG (NEG) Urine Marijuana (THC) POS (NEG) Urine Marijuana (THC Carboxy Acid) 97 NG/ML (CUTOFF=5) White Blood Count 6.01 K/uL (4.8-10.8) Red Blood Count 4.04 M/uL (4.7-6.1) Hemoglobin 13.0 g/dL (14.0-18.0) Hematocrit 39.0 % (42-52) Mean Corpuscular Volume 96.5 fL (80-100) Mean Corpuscular Hemoglobin 32.2 pg (25-34) Mean Corpuscular Hemoglobin Concent 33.3 g/dl (32-36) Platelet Count 195 K/uL (130-400) Mean Platelet Volume 10.7 fL (7.4-10.4) Neutrophils (%) (Auto) 49.7 % Lymphocytes (%) (Auto) 41.6 % Monocytes (%) (Auto) 7.0 % Eosinophils (%) (Auto) 1.2 % Basophils (%) (Auto) 0.3 % Neutrophils # (Auto) 2.99 K/uL (1.4-6.5) Lymphocytes # (Auto) 2.50 K/uL (1.2-3.4) Monocytes # (Auto) 0.42 K/uL (0.11-0.59) Eosinophils # (Auto) 0.07 K/uL (0-0.5) Basophils # (Auto) 0.02 K/uL (0-0.2) RDW Standard Deviation 52.2 fL (36.4-46.3) RDW Coefficient of Variation 14.8 % (11.5-14.5) Immature Granulocyte % (Auto) 0.2 % Immature Granulocyte # (Auto) 0.01 K/uL (0.00-0.02) Anion Gap 6.0 mmol/L (3-11) Est Creatinine Clear Calc Drug Dose 126.2 ml/min Estimated GFR () 136.6 Estimated GFR (Non- 117.8 BUN/Creatinine Ratio 9.4 (10-20) Bedside Glucose 79 mg/dl (70-99) Calcium Level 9.1 mg/dl (8.5-10.1) Total Bilirubin 0.4 mg/dl (0.2-1) Direct Bilirubin 0.1 mg/dl (0-0.2) Aspartate Amino Transf (AST/SGOT) 39 U/L (15-37) Alanine Aminotransferase (ALT/SGPT) 71 U/L (12-78) Alkaline Phosphatase 44 U/L (45-117) Total Protein 7.0 gm/dl (6.4-8.2) Albumin 3.8 gm/dl (3.4-5.0) Thyroid Stimulating Hormone (TSH) 3.040 uIu/ml (0.300-4.500) Ethyl Alcohol mg/dL < 3.0 mg/dl (0-3)
[2017-09-18 06:59] VITALS: BP_SYST 104; BP_SYST 108; BP_DIAS 65; BP_DIAS 74; PULSE 48; PULSE 62; TEMP 36.6
[2017-09-18 07:57] VITALS: BP 108/74; PULSE 62; TEMP 36.6; O2SAT 100
[2017-09-18] MEDS: NICOTINE 14 MG/24 HR TDSY TD SCH (08:19)
[2017-09-18] MEDS: METHADONE ORAL SOLN 2 MG/1ML PO SCH (08:19)
[2017-09-18] MEDS: GABAPENTIN 300 MG CAP PO SCH (08:20)
[2017-09-18] MEDS: PATIENT'S OWN CONTROLLED MED SCH (08:22)
--- NOTE | 2017-09-18 08:53 | Discharge Instructions ---
Discharge Information Report Includes Report will include the: Discharge Instructions & Summary Admission Admission Date / Time: Sep 08, 2017 at 22:28 Reason for Admission: Mdr Recurrent Severe Discharge Discharge Diagnosis / Problem: Depression, opiate dependence Condition at Discharge: Good Discharge Goals Goal(s): Improve disease control Activity Recommendations Activity Limitations: resume your previous activity . Instructions / Follow-Up Instructions / Follow-Up . SPECIAL CARE INSTRUCTIONS: 1. Follow through with your scheduled aftercare appointments. If unable to keep an appointment, please call to reschedule. 2. Take your medication only as prescribed. Medication should not be changed or stopped without the approval of your doctor. In the event of worsening symptoms or concerns about side effects, contact your doctor immediately. 3. Utilize new healthy coping skills, anger management skills, and stress management skills learned during your hospitalization. Journal feelings and process them with a support person. Identify stressors or situations that may result in relapse, deterioration or inappropriate behaviors and develop a plan to deal with those issues. 4. If your coping skills are ineffective and you are in crisis, contact your outpatient providers for direction. If unable to reach your providers, please call the CAN HELP LINE AT or go to the closest Emergency Room. 5. Avoid alcohol and un-prescribed drugs. 6. You have been provided with the Mental Health Advance Directives Pamphlet for your review. AFTERCARE APPOINTMENTS: * Please call your insurance company prior to your scheduled appointment to confirm your aftercare providers are covered. Take your insurance information to your appointments. . Discharge / Aftercare Planning Primary Care Physician: Name: Penny Therapist: Name Of Therapist: Chris Griffin, and rescheduled for 09/23 @10:30 Date of Appointment: Sep 09, 2017 Cafe Team Member: Name: Penny . Follow-Up Care Plan for Follow-Up Care: The patient will be going directly to [facility], with father transporting Current Hospital Diet Patient's current hospital diet: Regular Diet Discharge Diet Recommended Diet: Regular Diet Procedures Procedures Performed: No Pending Studies Pending Studies at Discharge: No Medical Emergencies . Who to Call and When: Medical Emergencies: For questions or emergencies related to your hospital stay, please contact the Inpatient Behavioral Health Unit at [phone]. A power lineworker is on-call 08/09 for the Behavioral Health Unit for emergencies At any time you feel your situation is an emergency, you may also call 911 immediately. . Non-Emergent Contact Non-Emergency issues call your: Psychiatrist, Therapist Past History Medical & Surgical History: (1) Hepatitis C Advance Directives Do You Have an Existing Mental: No Existing Living Will: No Existing Power of Lithographic Retoucher Apprentice: No Advance Directives Info Given: To Pt/S.O. Advance Directives Reason: Declines as Mental Health Visit. Discharge Summary Admission HPI Per the Admitting provider: The patient was admitted to the behavioral health unit from 09/02/2017 through , also for suicidal ideation. He had been brought in by police after bystanders notified them that he was standing on the ledge of a parking garage with intent to jump. He reported being homeless and living on the streets for the past 3 years, said he had no supports locally, and wanted to end his life. He had had an argument with his boss, when he asked to be paid early and his boss declined. He reported being estranged from all of his family members, including his ex- and children who live in another state. He gave inconsistent and conflicting reports, and we received outside information that he had been kicked out of multiple local shelters due to assaulting others and stealing, which he denied. He said he had a history of multiple mental health diagnoses, but was not currently in treatment. He also endorsed a significant substance abuse history, including daily cannabis and a history of IV heroin use , receiving methadone from [facility]. He reported that he had become acutely suicidal when his boss would not give him his paycheck early. He wanted assistance in finding housing, and wanted to be put back on medications, specifically requesting high-dose gabapentin. When encouraged to consider other mood stabilizers with less abuse potential, risk of drug drug interactions, and greater efficacy, he refused, stating he would just continue to smoke pot, as he liked that better. The social work specialist met with him and attempted to refer him to multiple local shelters, but was informed that he was well known to them and had been asked to leave due to assaulting others and stealing. He refused a family meeting, stating he had no supports. [facility], who declined to provide him services as he is not a [facility] resident (medical assistance is from another [facility], and address on his license is [place], which he says is his father's residence). He was referred to [facility] for dual diagnosis treatment (intake was scheduled for today), and was discharged the following day. Per previous H&P: He reports he first got mental health treatment in 2011, in multiple rehabs, and lists the above diagnoses. He describes mood as "always up and down," with periods of "high energy," impulsivity and racing thoughts, during which sleep is unchanged (chronically poor, due to sleeping outside on benches). He has had episodes of decreased need for sleep, says he went for 9 days without sleep while using cocaine and meth, but not in the absence of substance abuse. He reports mood switches frequently from elevated to depressed, usually multiple times a day. He denies periods of euthymia, and prolonged periods of depression. He says mood is only "stable" when he's under the influence of cannabis, and he thinks it is a good substance for him. He does not plan to change his use, saying it helps him with sleep, appetite, socialization, concentration, creativity, "making good decisions," and "a better mood." When it is reflected back to him that he reports smoking cannabis daily, but that mood has been "all over the place," he says that is only because he does not have enough money to smoke throughout the day, and the effects only last for about 4 hours. He denies AVH, paranoia. He denies current PTSD symptoms, but says months ago he had "night terrors," which he describes as "very vivid dreams , wake up in a panic attack." He denies other anxiety symptoms and OCD. He gives several reports of other lying about him and causing problems for him, including that the woman who runs a local [place] [facility] lied about him stealing purses from a jewish and kicked him out unfairly, that he was arrested on burglary charges as an adolescent because of other people's actions, and that his aunt lied about him to get a PFA so that he would be kicked out of the house and she could use it. He initially stated that he came to the [place] area because he had friends and family here, but then stated that he has no friends or supports, and all of his family are . With repeated questioning, he stated that his father is still alive and living in [place], but they do not have contact. He presented to the emergency room yesterday, stating that he woke up feeling depressed, and his mood worsened as the day progressed. He said that he was "doing stupid things today," such as walking into traffic without looking, and walking on the ledge of a parking deck. He did not want to live, and did not feel he has a purpose. He said he should have started on medications and wished she would not have refused treatment during his last admission. He said he had been living at the [facility], and spending his time " wandering around." He had lost his job due to missing shifts. His drug screen was positive for methadone and THC. On my assessment, he says "some stuff happened, I lost my job," and says he has "no idea, can't even imagine" why. He says mood was "great" when he left the hospital, and was stable until "I lost it yesterday morning, I was all over the place, lost my shit." He is vague when asked what happened yesterday that triggered the mood change. With repeated questioning, says his boss texted him yesterday am not to come in and "seemed upset." He then stopped responding to the patient's texts, "so I was just in a really bad mood, freaking out, doing reckless shit." He "ran into a friend Maurice, he suggested that I come in here, and walked me back here." He says there "was more going on," but won't say what that is. Says "there's definitely something wrong with me, having outbursts like that," saying he was "yelling, cursing, just walking out in front of cars." Says this morning he is "not good, I need a dose" (methadone), and reports thoughts are "jumbled." When asked if he is suicidal, says "I don't know, I would be." He says he'd "probably be in shelter or if I wasn't here." Hospital Course (1) Mood disorder 09/09 -mood disorder NOS, differential includes substance-induced depression, personality disorder, unipolar depression and bipolar depression. Based on his report and available records, substance-induced depression versus Kenna II disorder seem most likely. It would be helpful to get collateral information, but he states there is no one he will allow us to speak with. -Patient states no medications have worked other than high dose gabapentin. Again reviewed concerns with using this medication (interactions with methadone , abuse potential), and previous OP records from Dr. Pacheco. After discussion of this and the alternatives, agreed to start 100mg tid and see how he responds, titrating as tolerated. It is not the preferred treatment but patient reports previous good response and we can monitor him here for AMS/drug interactions. -Intake was scheduled with [facility] for today, and will need to be rescheduled. -Patient is not eligible for case management, as his residence [place] listed in another county. He does not have local [place] [facility] options due to his past behaviors. Encouraged him to find employment so that he can get his own housing. 09/11 - Continue gabapentin 100mg TID, not titrated today, pt reports historically effective dose of 300mg TID, despite high dose of 1200mg previously - Continue to encourage participation in group programming and working on recovery as able prior to transfer to inpatient rehab on 09/18/1709/12 - increase neurontin to 200mg po TID at pt's request. risks/benefits reviewed. 09/13 - Mild mood downtrend evident yesterday afternoon continues. Planning of increased irritability. We will increase gabapentin to 300 mg 3 times daily to address. Tolerating escalation without side effects 09/14 - Continue gabapentin 300mg TID 09/15 - Mood stable as he awaits rehab 09/16 -Patient willing for a family meeting with his ex- today. 09/17 - Transfer to rehab tomorrow (2) Heroin abuse 09/09 -continue methadone, dose confirmed with [facility]. Get collateral information from his counselor at the methadone clinic. 09/10 - Refer to rehab 09/11 - Accepted to rehab - bed date 09/18/1709/12 - remains motivated and accepting of rehab 09/15 - Accepted to [facility] with admit 09/18 (3) Cannabis abuse 09/09 -patient has been educated on the risks of ongoing cannabis use, including worsening psychiatric symptoms, drug drug interactions, legal repercussions, decreased motivation, but is not concerned about his use or interested in changing his behavior. Brief intervention was offered and accepted Intervention was greater than 5 min in length. Brief interventions include: 1. Assess Readiness to Quit, 2. Advise: Help Patient to Reduce or Abstain from Alcohol, 3. Agree: Set Specific, Feasible Goals, 4. Assist: Anticipate barriers, Problem-Solving Solutions. Social work to 5. Arrange: Referrals to appropriate treatment. Summary of intervention: The patient is in precontemplation stage with regards to transtheoretical model of change. The patient is advised to decrease alcohol consumption due to depressant effects and risk of interactions with prescription medications. The patient agreed to engage in services at [facility] and will be provided with recovery materials to continue to education self on how to cope with their condition without drinking. (4) Personality disorder Cluster B traits, predominantly borderline and antisocial. Risk Factors Assessment Male: Yes : Yes /single/: Yes Higher / Fall in social status: Yes Health problems: No Mental Health Diagnoses: Yes Substance use disorders: Yes Previous attempt: Yes Family history of suicide: No Previous psychiatric stay: Yes Hopelessness: No Smoker: No Protective Factors Assessment : No Responsible for young children: No Employed: No Stable relationships: No Supportive family: No Good rapport with provider: No Day of Discharge Assessment COURSE OF HOSPITALIZATION: The patient has been on our unit for 10 days. He was admitted voluntarily with acute suicidality in the setting of being homeless and without supports. For additional admission information I refer you to the attached history and physical. During his stay he was continued on his outpatient doses of methadone 92 mg daily. This dosage was confirmed with his provider. Gabapentin was added which he felt was helpful to manage his anxiety. During this stay he agreed to go to rehab with the intent of getting off of methadone. He was committed to this idea and [facility] Gutierrez was able to take him today. It was deemed necessary to keep him in the hospital during this time in order to prevent relapse. He used his time well, attended group and individual counseling and worked on his recovery workbook. He was without suicidal ideation for the vast majority of his stay. His father was involved in his treatment, and was willing to provide transportation to rehab today. Risk factors were mediated through the use of group and individual counseling, medications, family work, safety planning, and plans for rehab. DAY OF DISCHARGE ASSESSMENT: Today the patient is excited about starting his journey back to sobriety. He remains hopeful, without suicidal thinking. Today he is casually and appropriately dressed and groomed. Gait and station are within normal limits. Eye contact is good. Affect is smiling. Speech is of normal rate volume and tone. Thoughts are organized, goal-directed, and without evidence of thought disorder. Recent and remote memory are intact. Intelligence is estimated to be average. Insight and judgment are improved over admission. Laboratory Test 09/08/17 19:20 09/08/17 19:58 Urine Color YELLOW Urine Appearance CLEAR Urine pH 7.5 Urine Specific Dresher 1.008 Urine Protein NEG Urine Glucose (UA) NEG Urine Ketones NEG Urine Occult Blood NEG Urine Nitrite NEG Urine Bilirubin NEG Urine Urobilinogen NEG Urine Leukocyte Esterase NEG Urine Opiates Screen NEG Urine Methadone, Qualitative POS Urine Methadone Metabolites 2780 Urine Methadone Confirm 1390 Urine Barbiturates NEG Urine Phencyclidine (PCP) Level NEG Ur Amphetamine/Methamphetamine NEG MDMA (Ecstasy) Screen NEG Urine Benzodiazepines Screen NEG Urine Cocaine Metabolite NEG Urine Marijuana (THC) POS Urine Marijuana (THC Carboxy Acid) 97 White Blood Count 6.01 Red Blood Count 4.04 Hemoglobin 13.0 Hematocrit 39.0 Mean Corpuscular Volume 96.5 Mean Corpuscular Hemoglobin 32.2 Mean Corpuscular Hemoglobin Concent 33.3 Platelet Count 195 Mean Platelet Volume 10.7 Neutrophils (%) (Auto) 49.7 Lymphocytes (%) (Auto) 41.6 Monocytes (%) (Auto) 7.0 Eosinophils (%) (Auto) 1.2 Basophils (%) (Auto) 0.3 Neutrophils # (Auto) 2.99 Lymphocytes # (Auto) 2.50 Monocytes # (Auto) 0.42 Eosinophils # (Auto) 0.07 Basophils # (Auto) 0.02 RDW Standard Deviation 52.2 RDW Coefficient of Variation 14.8 Immature Granulocyte % (Auto) 0.2 Immature Granulocyte # (Auto) 0.01 Sodium Level 138 Potassium Level 3.4 Chloride Level 104 Carbon Dioxide Level 28 Anion Gap 6.0 Blood Urea Nitrogen 8 Creatinine 0.82 Est Creatinine Clear Calc Drug Dose 126.2 Estimated GFR () 136.6 Estimated GFR (Non- 117.8 BUN/Creatinine Ratio 9.4 POC Glucose 79 Random Glucose 74 Calcium Level 9.1 Total Bilirubin 0.4 Direct Bilirubin 0.1 Aspartate Amino Transferase (AST) 39 Alanine Aminotransferase (ALT) 71 Alkaline Phosphatase 44 Total Protein 7.0 Albumin 3.8 Thyroid Stimulating Hormone (TSH) 3.040 Ethyl Alcohol mg/dL < 3.0 Total Time Total Time Spent (min): Greater than 30 minutes Total Time Included: examination of the patient, discharge planning, medication reconciliation, communication with other providers Transition of Care Transition of care record: was reviewed with the patient Tobacco Cessation at Discharge Smoking Status: Never Smoker FDA approved Prescription: non-smoker
[2017-09-18] MEDS ORDERED: NRN300 PO (08:54)
== END 2017-09-18 09:55 | disposition other institution (70) | DRG 885 ==
LOC: C.EDB 19:05 → C.MHU 22:28
PROVIDERS: ADMIT Psychiatry & Neurology Child & Adolescent Psychiatry; ATTEND Psychiatry & Neurology Psychiatry
DX: F39 Unspecified mood [affective] disorder (principal); R45.851 Suicidal ideations; F11.20 Opioid dependence, uncomplicated; F12.10 Cannabis abuse, uncomplicated; F60.9 Personality disorder, unspecified; Z59.0 Homelessness; Z87.891 Personal history of nicotine dependence; Z88.8 Allergy status to other drugs, medicaments and biological substances; Z88.1 Allergy status to other antibiotic agents; Z80.8 Family history of malignant neoplasm of other organs or systems

== ENCOUNTER 2019-10-11 10:56 | Observation (INO) ==
[2019-10-11] MEDS ORDERED: SODIUM CHLORIDE 0.9% 1000ML 1,000 ML IV SCH (11:15)
--- NOTE | 2019-10-11 11:38 | XRay Report ---
XR chest 1V portable CLINICAL HISTORY: overdose COMPARISON STUDY: 11/10/2018 FINDINGS: The cardiac and mediastinal contours are normal. There is no evidence of focal pulmonary co nsolidation. There is no evidence of failure. No pleural effusions are visualized.[ IMPRESSION: No active disease in the chest. ACT 112: Negative or not required by law. Electronically signed by: Isak Parks M.D. 10/11/2019 11:37 AM
[2019-10-11 11:43] LABS: Basophils # (auto) 0.01 K/uL (0-0.2); Basophils % (auto) 0.1 %; Eosinophils # (auto) 0.02 K/uL (0-0.5); Eosinophils % (auto) 0.2 %; Hematocrit (blood only) 41.5 % (42-52); Hemoglobin 14.1 g/dL (14.0-18.0); Immature Granulocytes # (auto) 0.02 K/uL (0.00-0.02); Immature Granulocytes % (auto) 0.2 %; Lymphocytes # (auto) 2.52 K/uL (1.2-3.4); Lymphocytes % (auto) 31.3 %; Mean Corpuscular Hemoglobin 31.8 pg (25-34); Mean Corpuscular Volume 93.7 fL (80-100); Mean Platelet Volume 10.4 fL (7.4-10.4); Neutrophils # (auto) 5.07 K/uL (1.4-6.5); Neutrophils % (auto) 63.2 %; Platelet Count 243 K/uL (130-400); RDW Coefficient of Variation 13.8 % (11.5-14.5); RDW Standard Deviation 47.6 fL (36.4-46.3); Red Blood Count 4.43 M/uL (4.7-6.1); White Blood Count 8.04 K/uL (4.8-10.8)
--- NOTE | 2019-10-11 11:58 | Emergency Department Note ---
Impression & Plan Suicide attempt, Mood disorder, Gabapentin overdose, Lethargic ED Provider Note NAME: SHERRI QUINONES AGE: 34 SEX: M : 1985 ARRIVES VIA: Ambulance INFORMANT: Patient, Police ED PROVIDER(S): Carlo Sprague DO CHIEF COMPLAINT: Suicide attempt HPI: Patient is a 34-year-old male who was [facility] the [facility] who presents complaining that he has nothing left to live for. He admits to taking the remainder of his bottle of gabapentin. He just had the bottle refilled. He believes that there is somewhere between 80 to 100 tablets. There were 300 mg apiece. He admits to some nausea. He took it just over an hour prior to arrival. He denies any headache change in vision. No chest pain shortness of breath nausea vomiting or diarrhea. No other exacerbating or remitting factors. Denies any homicidal ideations. ROS: See above HPI for pertinent positives & negatives. A total of 10 systems reviewed and were otherwise negative. PAST MEDICAL HISTORY:See Below PAST SURGICAL HISTORY:See Below FAMILY HISTORY:See Below SOCIAL HISTORY:See Below HOME MEDICATIONS:See Below ALLERGIES:See Below VITALS:See Below PHYSICAL EXAMINATION: GENERAL: Sitting up in bed, alert, disheveled, tired. EYE EXAM: normal conjunctiva. PERRL and EOM's grossly intact. OROPHARYNX: no exudate, no erythema, lips, buccal mucosa, and tongue normal and mucous membranes are moist NECK: supple, no nuchal rigidity, no adenopathy, non-tender LUNGS: Clear to auscultation. Normal chest wall mechanics HEART: no murmurs, S1 normal and S2 normal ABDOMEN: abdomen soft, non-tender, normo-active bowel sounds, no masses, no rebound or guarding. BACK: Back is symmetrical on inspection and there is no deformity, no midline tenderness, no CVA tenderness. SKIN: no rashes and no bruising UPPER EXTREMITIES: upper extremities are grossly normal. LOWER EXTREMITIES: No pitting edema. NEURO EXAM: Normal sensorium, cranial nerves II-XII grossly intact, normal speech, no gross weakness of arms, no gross weakness of legs. MEDICAL DECISION MAKING: Patient is a 34-year-old male who presents the ER for suicide attempt. He took 80 to 100 tabs of gabapentin which were 300 mg tablets. IV was established blood work was obtained. Labs show no significant leukocytosis or anemia. BMP along with LFTs bilirubin was unremarkable. TSH was unremarkable. Alcohol was negative. Chest x-ray was unremarkable. TSH was unremarkable. Patient became gradually more sleepy. Patient was given IV fluids. He was monitored closely. Discussed with [place] poison control who recommended admission if symptomatic. Discussed the hospitalist patient will be worked up an inpatient standpoint. Was on a one-to-one while in the ER. Triage Nursing notes reviewed. Prior medical records reviewed Vital Signs: reviewed and remarkable for no significant abnormalities Differential diagnosis: Overdose, toxicologic, infection, hypoglycemia, electrolyte abnormalities, cardiac sources, intracerebral event, neurologic, trauma, as well as other pathologies. ER treatment provided: See below Diagnostics interpreted by me: ECG: Sinus rhythm rate of 68 Normal axis No PVCs Normal QTC Cardiac Monitoring: An order was placed for continuous cardiac monitoring. The monitor shows a rate of 65 with sinus rhythm. Laboratory studies: As stated above and show below. Imaging studies: Audible AP upright 1 view of the chest shows no focal infiltrate or pneumothorax Consultation(s): Discussed with Dr. Cam Weir for admission ED COURSE: Procedures: none Critical Care: None Past Med/Surg History Medical History (Updated 10/11/19 @ 14:01 by Carlo Sprague DO) Anxiety Cannabis abuse Central nervous system stimulant overdose Chronic prescription opiate use Cocaine abuse Depression Hepatitis C Heroin abuse IVDU (intravenous drug user) Methamphetamine abuse Mood disorder Personality disorder Psychosis PTSD (post-traumatic stress disorder) PTSD (post-traumatic stress disorder) Suicidal ideation Family History Other No pertinent family history Social History Smoking Status: Current every day smoker Tobacco Type: Cigarettes Hx Substance Use: Yes Substance Use Type Other:: fentanyl Preferred Language: Kyrgyz Communication Ability: Effective Visual Impairment: No Limitations Hearing Ability: Normal Inventory Control Clerk Required: No Beliefs That Will Affect Care: None marital status: . Current Living Situation: Homeless Current Living Situation Comment: Prior to the admission the patient had been living temporarily with friends. It is not clear if he will be able to return to that home following discharge. current occupational status: unemployed Feels Safe at Home: Yes Allergies Allergies Allergy/AdvReac Type Severity Reaction Status Date / Time doxepin Allergy Severe TARTIVE Verified 10/11/19 13:23 DYSKINESIA mirtazapine Allergy Severe TARTIVE Verified 10/11/19 13:23 DYSKINESIA quetiapine Allergy Severe TARTIVE Verified 10/11/19 13:23 DYSKINESIA trazodone Allergy Severe TARTIVE Verified 10/11/19 13:23 DYSKINESIA doxycycline AdvReac Severe NAUSEA & Verified 10/11/19 13:23 VOMITING Home Meds Home Medications Medication Instructions Recorded Confirmed methadone 117 mg PO QAM 01/19/19 10/11/19 gabapentin 300 mg PO QID 10/11/19 10/11/19 lamotrigine 150 mg PO QAM 10/11/19 10/11/19 Results & Data (ED) Vital Signs Vital Signs - 24 hr 10/11/19 10:58 10/11/19 11:04 10/11/19 11:27 Temperature 37.1 C Temperature Source Oral Pulse Rate 72 73 81 Pulse Rate [Finger] Pulse Rate from SpO2 Sensor 75 82 Respiratory Rate 14 20 20 Respiratory Effort / Characteristics Non-Labored Respiratory Depth Normal Respiratory Pattern Regular Blood Pressure 127/84 127/84 140/75 Blood Pressure [Left Arm] Blood Pressure Mean 104 98 80 Blood Pressure Mean [Left Arm] Pulse Oximetry 95 99 95 Oxygen Delivery Method Room Air Room Air Room Air Sepsis Recent Fever Within 48 Hours No Sepsis New/Unexplained Change in Mental Status N/A Sepsis Action Taken by Nursing No Action Required 10/11/19 11:30 10/11/19 12:00 10/11/19 12:30 Temperature Temperature Source Pulse Rate 71 61 60 Pulse Rate [Finger] 58 L Pulse Rate from SpO2 Sensor 71 63 59 L Respiratory Rate 19 14 14 Respiratory Effort / Characteristics Respiratory Depth Respiratory Pattern Blood Pressure 124/82 112/68 104/71 Blood Pressure [Left Arm] 112/68 Blood Pressure Mean 90 74 85 Blood Pressure Mean [Left Arm] 82 Pulse Oximetry 93 96 95 Oxygen Delivery Method Room Air Sepsis Recent Fever Within 48 Hours Sepsis New/Unexplained Change in Mental Status Sepsis Action Taken by Nursing 10/11/19 12:31 10/11/19 13:00 10/11/19 13:30 Temperature Temperature Source Pulse Rate 59 L 57 L 56 L Pulse Rate [Finger] Pulse Rate from SpO2 Sensor 58 L 56 L 54 L Respiratory Rate 14 12 12 Respiratory Effort / Characteristics Respiratory Depth Respiratory Pattern Blood Pressure 123/81 111/76 Blood Pressure [Left Arm] Blood Pressure Mean 91 90 Blood Pressure Mean [Left Arm] Pulse Oximetry 95 95 97 Oxygen Delivery Method Room Air Room Air Sepsis Recent Fever Within 48 Hours Sepsis New/Unexplained Change in Mental Status Sepsis Action Taken by Nursing 10/11/19 13:46 Temperature Temperature Source Pulse Rate Pulse Rate [Finger] Pulse Rate from SpO2 Sensor Respiratory Rate Respiratory Effort / Characteristics Respiratory Depth Respiratory Pattern Blood Pressure Blood Pressure [Left Arm] Blood Pressure Mean Blood Pressure Mean [Left Arm] Pulse Oximetry Oxygen Delivery Method Room Air Sepsis Recent Fever Within 48 Hours Sepsis New/Unexplained Change in Mental Status Sepsis Action Taken by Nursing Laboratory Data Result diagrams: 10/11/19 11:19 10/11/19 11:19 Lab Results 10/11/19 10/11/19 10/11/19 Range/Units 11:18 11:19 11:19 WBC 8.04 (4.8-10.8) K/uL RBC 4.43 L (4.7-6.1) M/uL Hgb 14.1 (14.0-18.0) g/dL Hct 41.5 L (42-52) % MCV 93.7 (80-100) fL MCH 31.8 (25-34) pg MCHC 34.0 (32-36) g/dL RDW Std Deviation 47.6 H (36.4-46.3) fL RDW Coeff of Mae 13.8 (11.5-14.5) % Plt Count 243 (130-400) K/uL MPV 10.4 (7.4-10.4) fL Immature Gran % (Auto) 0.2 % Neut % (Auto) 63.2 % Lymph % (Auto) 31.3 % [place] % (Auto) 5.0 % Eos % (Auto) 0.2 % Baso % (Auto) 0.1 % Neut # (Auto) 5.07 (1.4-6.5) K/uL Lymph # (Auto) 2.52 (1.2-3.4) K/uL [place] # (Auto) 0.40 (0.11-0.59) K/uL Eos # (Auto) 0.02 (0-0.5) K/uL Baso # (Auto) 0.01 (0-0.2) K/uL Immature Gran # (Auto) 0.02 (0.00-0.02) K/uL Sodium 137 (136-145) mmol/L Potassium 3.9 (3.5-5.1) mmol/L Chloride 105 (98-107) mmol/L Carbon Dioxide 25 (21-32) mmol/L Anion Gap 7.0 (3-11) BUN 16 (7-18) mg/dl Creatinine 1.09 (0.6-1.4) mg/dl Est Cr Clr Drug Dosing 93.3 ml/min Est GFR ( Amer) 102.8 Est GFR (Non-Af Amer) 88.7 BUN/Creatinine Ratio 14.9 (10-20) Glucose 81 (70-99) mg/dl POC Glucose 81 (70-99) mg/dl Calcium 9.6 (8.5-10.1) mg/dl Total Bilirubin 0.4 (0.2-1) mg/dl AST 39 H (15-37) U/L ALT 66 (12-78) U/L Alkaline Phosphatase 53 (45-117) U/L Total Protein 8.4 H (6.4-8.2) gm/dl Albumin 4.4 (3.4-5.0) gm/dl Globulin 4.0 (2.5-4.0) gm/dl Albumin/Globulin Ratio 1.1 (0.9-2) TSH 1.920 (0.300-4.500) uIu/ml Salicylates (2.8-20) mg/dl Acetaminophen (10-30) ug/ml Ethyl Alcohol mg/dL (0-3) mg/dl 10/11/19 10/11/19 Range/Units 11:19 11:19 WBC (4.8-10.8) K/uL RBC (4.7-6.1) M/uL Hgb (14.0-18.0) g/dL Hct (42-52) % MCV (80-100) fL MCH (25-34) pg MCHC (32-36) g/dL RDW Std Deviation (36.4-46.3) fL RDW Coeff of Mae (11.5-14.5) % Plt Count (130-400) K/uL MPV (7.4-10.4) fL Immature Gran % (Auto) % Neut % (Auto) % Lymph % (Auto) % [place] % (Auto) % Eos % (Auto) % Baso % (Auto) % Neut # (Auto) (1.4-6.5) K/uL Lymph # (Auto) (1.2-3.4) K/uL [place] # (Auto) (0.11-0.59) K/uL Eos # (Auto) (0-0.5) K/uL Baso # (Auto) (0-0.2) K/uL Immature Gran # (Auto) (0.00-0.02) K/uL Sodium (136-145) mmol/L Potassium (3.5-5.1) mmol/L Chloride (98-107) mmol/L Carbon Dioxide (21-32) mmol/L Anion Gap (3-11) BUN (7-18) mg/dl Creatinine (0.6-1.4) mg/dl Est Cr Clr Drug Dosing ml/min Est GFR ( Amer) Est GFR (Non-Af Amer) BUN/Creatinine Ratio (10-20) Glucose (70-99) mg/dl POC Glucose (70-99) mg/dl Calcium (8.5-10.1) mg/dl Total Bilirubin (0.2-1) mg/dl AST (15-37) U/L ALT (12-78) U/L Alkaline Phosphatase (45-117) U/L Total Protein (6.4-8.2) gm/dl Albumin (3.4-5.0) gm/dl Globulin (2.5-4.0) gm/dl Albumin/Globulin Ratio (0.9-2) TSH (0.300-4.500) uIu/ml Salicylates 3.9 (2.8-20) mg/dl Acetaminophen < 2 L (10-30) ug/ml Ethyl Alcohol mg/dL < 3.0 (0-3) mg/dl Administered Medications Discontinued Medications Sodium Chloride (Nss 1000ml) 1,000 mls @ 999 mls/hr IV .Q1H1M LIS Stop: 10/11/19 12:15 Last Infusion: 10/11/19 12:35 Dose: 0 mls/hr Documented by: [id number] Admin: 10/11/19 11:34 Dose: 999 mls/hr Documented by: [id number] Discharge Plan Visit Data Chief Complaint: Mental Health Evaluation Stated Complaint: mhid ED Provider: Carlo Sprague Discharge Problem: Suicide attempt, Mood disorder, Gabapentin overdose, Lethargic Discharge Instructions Interventions: ED Discharge Assessment Last Done: 10/11/19 13:46 Discharge Problem: Gabapentin overdose Qualifiers: Encounter type: initial encounter Injury intent: intentional self-harm Qualified Code(s): T42.6X2A - Poisoning by other antiepileptic and sedative- hypnotic drugs, intentional self-harm, initial encounter
[2019-10-11 12:00] LABS: Albumin Level 4.4 gm/dl (3.4-5.0); BUN Creatinine Ratio 14.9 (10-20); Calcium 9.6 mg/dl (8.5-10.1); Creatinine Clr Calc Pharmacy 93.3 ml/min; Est GFR (African American) 102.8; Est GFR (Non-African American) 88.7; Potassium 3.9 mmol/L (3.5-5.1)
[2019-10-11 12:10] LABS: Albumin Globulin Ratio 1.1 (0.9-2); Bilirubin,Total 0.4 mg/dl (0.2-1); Thyroid Stimulating Hormone 1.92 uIu/ml (0.300-4.500); Total Protein 8.4 gm/dl (6.4-8.2)
[2019-10-11 12:16] LABS: Acetaminophen < 2 ug/ml (10-30); Salicylate 3.9 mg/dl (2.8-20)
--- NOTE | 2019-10-11 12:18 | Electrocardiogram Report ---
Test Reason : Blood Pressure : / mmHG Vent. Rate : 068 BPM Atrial Rate : 068 BPM P-R Int : 160 ms QRS Dur : 094 ms QT Int : 398 ms P-R-T Axes : 053 051 044 degrees QTc Int : 423 ms Sinus rhythm with marked sinus arrhythmia Normal ECG When compared with ECG of 10-NOV-2018 14:56, No significant change was found Confirmed by Maurice Mane ([id number]) on 10/11/2019 12:18:14 PM Referred By: Confirmed By:Maurice Mane
--- NOTE | 2019-10-11 13:07 | History & Physical Report ---
Date of Service October 11, 2019 Assessment & Plan (1) Gabapentin overdose: Poorly patient took 8100 tablets of a 300 mg gabapentin prescription. He is lethargic. Poison control has been notified and recommend supportive care. Signs and symptoms of overdose can be lethargy sedation respiratory depression and nausea vomiting and diarrhea. If need be this can be removed be removed by hemodialysis in severe cases. Although supportive care will be undertaken the patient is a 302 warranted signed by police on his chart which will need to be satisfied prior to disposition Patient has had drug overdoses in the past including heroin and MDMA (2) Hepatitis C: Patient is a previous intravenous drug abuser (3) Mood disorder: History of Present Illness Primary Care Provider: NO PCP This [facility] from a homeless [facility] reportedly had an overdose of gabapentin where he took 80 to 100 of 300 mg pills intentionally. There is a 302 warrant on his chart according to case management in the emergency department he is lethargic and drowsy but protecting his airway Poison control is been notified by emergency medicine and they recommend supportive care Allergies Allergy/AdvReac Type Severity Reaction Status Date / Time doxepin Allergy Severe TARTIVE Verified 10/11/19 13:23 DYSKINESIA mirtazapine Allergy Severe TARTIVE Verified 10/11/19 13:23 DYSKINESIA quetiapine Allergy Severe TARTIVE Verified 10/11/19 13:23 DYSKINESIA trazodone Allergy Severe TARTIVE Verified 10/11/19 13:23 DYSKINESIA doxycycline AdvReac Severe NAUSEA & Verified 10/11/19 13:23 VOMITING Home Medications Home Medications Medication Instructions Recorded Confirmed Type methadone 110 mg PO QAM 01/19/19 04/29/19 History gabapentin 300 mg PO TID #90 cap 04/29/19 Rx lamotrigine 150 mg PO DAILY #30 tab 04/29/19 Rx Past Med/Surg History Medical History (Updated 10/11/19 @ 13:26 by Cam Pearson MD) Anxiety Cannabis abuse Central nervous system stimulant overdose Chronic prescription opiate use Cocaine abuse Depression Hepatitis C Heroin abuse IVDU (intravenous drug user) Methamphetamine abuse Mood disorder Personality disorder Psychosis PTSD (post-traumatic stress disorder) PTSD (post-traumatic stress disorder) Suicidal ideation Family History Other No pertinent family history Social History Smoking Status: Current every day smoker Tobacco Type: Cigarettes Hx Substance Use: Yes Substance Use Type Other:: fentanyl Preferred Language: Grenadian Communication Ability: Effective Visual Impairment: No Limitations Hearing Ability: Normal 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 Current Living Situation: Homeless Current Living Situation Comment: Prior to the admission the patient had been living temporarily with friends. It is not clear if he will be able to return to that home following discharge. current occupational status: unemployed Feels Safe at Home: Yes Review of Systems Review of Systems: Unobtainable due to cognitive status Physical Exam Physical Exam: The patient appeared well nourished and normally developed. He is lethargic but responds to questions and is appropriate following commands Vital signs as documented. Head exam is normocephalic atraumatic no scleral icterus Neck is without JVD, thyromegaly, or carotid bruits. Lungs are clear to auscultation, no focal loss of breath sounds Cardiac exam, Rhythm is regular.. No murmurs, rubs or gallops. Abdominal exam reveals normal bowel sounds, soft non tender, no masses Extremities are nonedematous and both pedal pulses are normal. Neurologic exam is alert and oriented, no focal loss of strength or sensation Skin is without bruises or rashes multiple areas of tattoos Psychologically is with sedation Results & Data Results & Data ([facility]) Vital Signs (Past 12 Hours) Vital Signs Temp Pulse Pulse Resp BP BP Pulse Ox 10/11/19 13:00 57 L 12 123/81 95 10/11/19 12:31 59 L 14 95 10/11/19 12:30 60 14 104/71 95 10/11/19 12:00 61 58 L 14 112/68 112/68 96 10/11/19 11:30 71 19 124/82 93 10/11/19 11:27 81 20 140/75 95 10/11/19 11:04 98.8 F 73 20 127/84 99 10/11/19 10:58 72 14 127/84 95 PG Care Time/CCT Total # of Minutes Spent Total Time Spent with Patient: Total time spent is greater than 50% in coordination of care (as documented) at patient's floor/unit and/or counseling patient: Coding Level of Care Code 53299 Initial Inpt Care Lvl 2 Diagnoses Gabapentin overdose T42.6X1A Hepatitis C B19.20 Mood disorder F39
[2019-10-11] MEDS ORDERED: ONDANSETRON INJ 2 MG/ML 2 ML VIAL IV PRN (13:19)
[2019-10-11 14:38] LABS: Appearance Urine Clear (Clear); Bilirubin Urine Negative (Negative); Blood Urine Negative (Negative); Color Urine Yellow; Glucose Urine UA Negative (Negative); Ketones Urine Negative (Negative); Leukocyte Esterase Urine Negative (Negative); Nitrite Urine Negative (Negative); Protein Urine Negative (Negative); Specific Gravity Urine 1.011 (1.000-1.030); Urobilinogen Urine Negative (Negative)
[2019-10-11 14:57] LABS: Amphetamines+Metham, Urine Neg (Neg); Barbiturates, Urine Neg (Neg); Benzodiazepine, Urine Neg (Neg); Cocaine, Urine Neg (Neg); MDMA (Ecstacy), Urine Neg (Neg); Methadone, Urine Pos (Neg); Opiate, Urine Neg (Neg); Phencyclidine, Urine Neg (Neg)
[2019-10-11] MEDS: SODIUM CHLORIDE 0.9% 1000ML 1,000 ML IV SCH (15:30)
[2019-10-12] MEDS: SODIUM CHLORIDE 0.9% 1000ML 1,000 ML IV SCH (00:58)
[2019-10-12 06:54] LABS: Hematocrit (blood only) 41.9 % (42-52); Hemoglobin 13.6 g/dL (14.0-18.0); Mean Corpuscular Hemoglobin 31.3 pg (25-34); Mean Corpuscular Hgb Conc 32.5 g/dL (32-36); Mean Corpuscular Volume 96.5 fL (80-100); Mean Platelet Volume 10.2 fL (7.4-10.4); Platelet Count 220 K/uL (130-400); RDW Coefficient of Variation 14.3 % (11.5-14.5); RDW Standard Deviation 50.8 fL (36.4-46.3); Red Blood Count 4.34 M/uL (4.7-6.1); White Blood Count 6.12 K/uL (4.8-10.8)
[2019-10-12 07:34] LABS: BUN Creatinine Ratio 13.3 (10-20); Calcium 8.8 mg/dl (8.5-10.1); Est GFR (African American) 138.2; Est GFR (Non-African American) 119.2; Potassium 4.1 mmol/L (3.5-5.1)
[2019-10-12] MEDS: METHADONE ORAL SOLN 2 MG/ML PO SCH ×2 (08:24→09:46)
[2019-10-12] MEDS: METHADONE PO SCH ×2 (08:25→09:45)
[2019-10-12] MEDS ORDERED: GABAPENTIN 300 MG CAP PO SCH (09:00)
[2019-10-12] MEDS ORDERED: lamoTRIgine 100 MG TAB PO SCH (09:00)
--- NOTE | 2019-10-12 10:49 | Psychiatric Consultation ---
Date of Consultation October 12, 2019 Impression / Recommendations (1) Gabapentin overdose: 10/11 -patient reports overdose was impulsive and manipulative in the setting of being angry with penitentiary staff for asking him to leave. He took the overdose in a provocative manner, in front of staff, with intention to go to the hospital and be treated. He has denied suicidal thoughts here, does not appear depressed, and I do not believe he would benefit from inpatient psychiatric treatment. He is at chronic increased risk for harm to himself due to his sex, race, substance abuse, personality disorder and history of overdoses, but is not at acute risk. He has a history of multiple hospitalizations for personality disorder and substance abuse, and is often manipulative. He has outpatient psychiatric care with Dr. Kahn, and agrees to follow-up with him. Called him to coordinate care, but had to leave a message. Informed him of the patient's gabapentin overdose, and that the medication has been discontinued. Have informed the patient that he will need to discuss ongoing use of this medication with his outpatient psychiatrist, but that I would not recommend it given its abuse potential, the fact that he is also on methadone, and the risk in overdose. Also discussed with primary attending Dr. Tejeda, as well as the option to give him a prescription for a short taper off the gabapentin. He is on Lamictal which would be protective for withdrawal/seizures. I am not sure if he has a mood disorder, as all of his previous mood symptoms while hospitalized here has been in the context of substance abuse, though I am not even sure that the Lamictal is indicated, but will defer that to Dr. Kahn. (2) Substance abuse: Significant addiction history, would avoid prescribing any medications that are addictive or abusable. Recommend primary team confirm methadone dose with [facility]. (3) Personality disorder: Prominent antisocial and borderline traits. Patient is often manipulati ve, with conditional suicidality (today threatening that if he is not given gabapentin, he "may" get suicidal.) Risk Factors Assessment Male: Yes : Yes Do You Have Access To A Gun?: No Health Problems: No Mental Health Diagnoses: No Substance Use Disorders: Yes Previous Attempt: Yes Previous Psychiatric Hospitalization: Yes Hopelessness: No Protective Factors Assessment Episcopalian Beliefs: No : No Responsible for Young Children: Yes Employed: Yes Stable Relationships: Yes Supportive Family: No Good Rapport with Provider: Yes Psych History Identifying Data 34-year-old male with a history of polysubstance abuse and antisocial and borderline personality disorder who is admitted after a gabapentin overdose. Chief Complaint " Yeah, uh, got evicted 2 days ago because she overdosed, it wasn't fair, we're good tenants". 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 Recommendations were for inpatient rehab to address his addictions, but no accepting facility could be identified. He was discharged on lamotrigine 150 mg daily, gabapentin 300 mg 3 times daily, and methadone 110 mg daily, with follow-up with Dr. Kahn and [facility] for methadone. He presented to the ER yesterday and reported overdosing on 80-100 tablets of gabapentin 300 mg after he was asked to leave the [facility]. He had nausea and sedation, was admitted to the hospitalist service for monitoring. His home medications were initially held, but resumed this morning. He had an episode of agitation this morning where he was belligerent, yelling profanities at nursing staff, and through a coffee cup at staff. A code rodgers was called. He demanded his methadone, stating that he was withdrawing and grinding his teeth, and was given 117 mg which he reported was his outpatient dose. He has been continued on Lamictal 150 mg daily, and gabapentin was discontinued due to his overdose. There is a 302 petition completed by police that states the patient reported taking the gabapentin overdose. On my assessment, he states that he was living with his "fijarvis, I call her my , but whatever," who overdosed, which led to them being evicted from their apartment 2 days ago, so they went to stay [facility], where the patient has stayed off and on for years. They found a new place but cannot move in until mid October, and he was upset that "I had to take my girl to the street with all of our belongings." He says they got into an argument with staff at the penitentiary in the artificial inseminator hours yesterday, and police were called and told him to leave. He claims he did nothing wrong and that it was all the penitentiary employee's fault. He and his girlfriend left and were "running around trying to get a hotel room," were at a local park and he told his girlfriend "I might have to go to the hospital b ecause I was thinking of suicide, and she walked away in that moment when I needed her most, and I have abandonment issues." He then went back to the penitentiary and "held up the bottle of pills and took it right in front of them." He states it was impulsive and that he knew he would be taken to the hospital to get treatment. He says that his mood was "really good" prior to getting evicted and then kicked out of the penitentiary, and denies any suicidal thoughts since coming to the hospital, stating he has made up with his girlfriend and they made a plan to get a hotel room until they can move into their apartment. He has income and says he is working at [employer] in [place], and has a paycheck he can pick remover to pay for the hotel room. He says that he is "6 months clean," but when reviewed his drug screen from 04/2019 which was + methamphetamine, he said "I don't really consider that a relapse, it was just a lapse in judgment." He has outpatient care with Dr. Kahn and plans to follow- up with him. He does not feel he needs inpatient psychiatric treatment, and is hoping to be discharged today. He then asks if I will give him a prescription for gabapentin, and advised that the medication has been discontinued due to his overdose, and ongoing use of that medication will need to be discussed with his outpatient psychiatrist who is prescribing it. He became argumentative, stating "I might be suicidal again if I don't get it." Past Psychiatric History Previous Psych History: Previous diagnoses include antisocial personality disorder, borderline personality traits, substance-induced psychosis, methamphetamine abuse, cannabis abuse, opiate use disorder (heroin, now on methadone). Current Psychiatric Diagnosis: Cluster B personality disorder, substance abuse Outpatient Services: Psychiatrist: Dr. Kahn Previous Psych Admissions: [facility] 05/06/2019 for methamphetamine and cannabis induced psychosis 01/2018 Do You Have Access To A Gun?: No History of Previous Suicide Attempt: Yes (Most by overdose on prescription medications) Past Medication Trials: Includes but not limited to: Lamotrigine Gabapentin Haloperidol Doxepin -patient reports he is allergic Mirtazapine -patient reports he is allergic Quetiapine -patient reports he is allergic Trazodone -patient reports he is allergic Gabapentin -overdosed on #100 300 mg tabs 10/11/2019 Allergies Allergy/AdvReac Type Severity Reaction Status Date / Time doxepin Allergy Severe TARTIVE Verified 10/11/19 13:23 DYSKINESIA mirtazapine Allergy Severe TARTIVE Verified 10/11/19 13:23 DYSKINESIA quetiapine Allergy Severe TARTIVE Verified 10/11/19 13:23 DYSKINESIA trazodone Allergy Severe TARTIVE Verified 10/11/19 13:23 DYSKINESIA doxycycline AdvReac Severe NAUSEA & Verified 10/11/19 13:23 VOMITING Home Medications Home Medications Medication Instructions Recorded Confirmed Type methadone 117 mg PO QAM 01/19/19 10/11/19 History lamotrigine 150 mg PO QAM 10/11/19 10/11/19 History gabapentin 300 mg PO QID #12 cap 10/12/19 Rx Family History Doesn't know Substance Abuse History Long history of polysubstance abuse, including methamphetamine, heroin, cocaine, prescription stimulants, cannabis, alcohol, and fentanyl. Multiple rehabs in the past, no current substance abuse treatment other than methadone from [facility]. Dose has not been confirmed with them. Personal History Living Arrangements: Homeless Living Arrangements Comments: Plans to stay in a hotel for 2 weeks until he can get into his new apartment Childhood: Raised by his mother in [place]. Father was not a significant part of his childhood, and lives in [place]. His mother in a motor vehicle accident. He had an older sister who 2 years ago of cancer. Highest Grade Completed: G.E.D. and Did Not Graduate High School Highest Grade Completed Comment: Began using drugs in high school, and dropped out Employment Status: [employer] Employed (Brothers nate and Sergio) Marital Status: Number Of Children: 2 Beliefs That Will Affect Care: None History of Legal Problems: Patient denies ever being arrested. Patient History Medical History (Updated 10/11/19 @ 14:11 by Mindy Patel RN) Anxiety Cannabis abuse Central nervous system stimulant overdose Chronic prescription opiate use Cocaine abuse Depression Hepatitis C Heroin abuse IVDU (intravenous drug user) Methamphetamine abuse Mood disorder Personality disorder Psychosis PTSD (post-traumatic stress disorder) PTSD (post-traumatic stress disorder) Suicidal ideation Trigeminal neuralgia of left side of face Family History Other No pertinent family history Social History Smoking Status: Light tobacco smoker Tobacco Type: Cigarettes Hx Alcohol Use: No Hx Substance Use: Yes Last Used Substance: Hours (ago) Substance Use Type Other:: fentanyl Preferred Language: Ecuadorean Communication Ability: Effective Visual Impairment: No Limitations Hearing Ability: Normal Automatic Fabric Cutter Required: No Beliefs That Will Affect Care: None marital status: . Current Living Situation: Alone Current Living Situation Comment: Homeless penitentiary current occupational status: unemployed Other Information That Helps Us Care for You: No Feels Safe at Home: Declines to Answer Safety Concerns: Afraid for Self Physical Exam Psychiatric: Orientation: alert and cooperative Well-nourished well- developed white male, lying in bed in no acute distress. Shirtless, multiple tattoos on bilateral upper extremities and back. Adequate hygiene and grooming. Eye Contact: + fair eye contact Motor Behavior: no abnormal motor movements Speech: normal rate/rhythm/volume of speech Affect: euthymic affect Irritable when discussing his gabapentin prescription and that it was discontinued due to his overdose. "Good now." Thought Process: goal directed thought process Thought Content: reality based without delusions Suicidal Thoughts: denies suicidal thoughts Homicidal Thoughts: denies homicidal thoughts Hallucinations: no auditory hallucinations Cognition: recent memory grossly intact, attention grossly intact and language grossly intact Insight: + poor insight Judgement: + poor judgement Vital Signs (Past 24 Hours): Last Vital Signs Temp 36.7 C 10/12/19 06:59 Pulse 45 L 10/12/19 06:59 Resp 16 10/12/19 06:59 BP 105/59 L 10/12/19 06:59 Pulse Ox 92 10/12/19 06:59 Review of Systems All systems reviewed & are unremarkable except as noted in HPI & below Results & Data (PSY) Medications Administered Sodium Chloride (Nss 1000ml) 1,000 mls @ 80 mls/hr IV .[id number] LIS Stop: 11/10/19 14:06 Last Admin: 10/12/19 00:58 Dose: 80 mls/hr Documented by: [id number] Infusion: 10/12/19 00:58 Dose: 80 mls/hr Documented by: [id number] Admin: 10/11/19 15:30 Dose: 80 mls/hr Documented by: [id number] Lamotrigine (Lamotrigine 100 Mg Tab) 150 mg PO QAM [facility] Stop: 11/11/19 08:59 Last Admin: 10/12/19 08:53 Dose: 150 mg Documented by: [id number] Methadone HCl (Methadone Oral Soln 2 Mg/Ml) [facility] Stop: 10/26/19 07:59 Last Admin: 10/12/19 09:46 Dose: Not Given Documented by: [id number] Admin: 10/12/19 08:24 Dose: 117 mg Documented by: [id number] Methadone: Patient' (s Own Controlled Med) 1 ea PO DAILY [facility] Stop: 10/26/19 07:59 Last Admin: 10/12/19 09:45 Dose: Not Given Documented by: [id number] Admin: 10/12/19 08:25 Dose: Not Given Documented by: [id number] Coding Level of Care Code 82473 [facility] Intl Hosp Care Lvl 3 Diagnoses Gabapentin overdose T42.6X1A Substance abuse F19.10 Personality disorder F60.9
[2019-10-12] MEDS ORDERED: GABAPENTIN 300 MG CAP PO STA (12:11)
--- NOTE | 2019-10-12 15:01 | Discharge Summary ---
Date of Service October 12, 2019 Admission HPI Per Admitting Provider This patient is from a homeless halfway reportedly had an overdose of gabapentin where he took 80 to 100 of 300 mg pills intentionally. There is a 302 warrant on his chart according to case management in the emergency department he is lethargic and drowsy but protecting his airway Poison control is been notified by emergency medicine and they recommend supportive care Principal Diagnosis Intentional gabapentin overdose Discharge Exam Constitutional WD/WN, vitals as above Eyes EOM intact bilaterally; no conjunctival abnormality ENMT external ear and nose normal, oropharynx normal Neck trachea midline, no thyromegaly normal visual inspection Respiratory normal respiratory effort, lungs clear to auscultation no respiratory distress Cardiovascular RRR, no murmur, no edema Gastrointestinal (Abdomen) Inspection/Auscultation: abdomen normal to inspection; abdomen not distended Musculoskeletal no cyanosis or clubbing, extremities motor strength 5/5 Skin no rashes, warm and dry Neurologic moves all extremities and awake Psychiatric Orientation: alert, oriented to person and cooperative Discharge Data Allergies Allergy/AdvReac Type Severity Reaction Status Date / Time doxepin Allergy Severe TARTIVE Verified 10/11/19 13:23 DYSKINESIA mirtazapine Allergy Severe TARTIVE Verified 10/11/19 13:23 DYSKINESIA quetiapine Allergy Severe TARTIVE Verified 10/11/19 13:23 DYSKINESIA trazodone Allergy Severe TARTIVE Verified 10/11/19 13:23 DYSKINESIA doxycycline AdvReac Severe NAUSEA & Verified 10/11/19 13:23 VOMITING Consultations 10/11/19 13:11 ED Decision to Admit Stat 10/11/19 14:07 Consult Case Management - Discharge Planning Routine 10/11/19 18:13 Consult Psychiatry Routine Hospital Course (1) Gabapentin overdose: Reportedly the patient took 80-100 tablets of a 300 mg gabapentin prescription. - By 10/11, he was back to normal mental status. - He was seen by psychiatry who report he has substantial substance abuse issues and personality disorder. His suicide attempt was retaliation for getting kicked out of his homeless halfway. After discussing with psychiatry, he denied any suicidal plan/intention. He has a hotel and has reconciled with his girlfriend and has no interest in killing himself and expressed remorse for his impulsive behavior. - He did very much want to continue his gabapentin. He expressed concern about withdrawal. Dr. Cantu thought this was a non-optimal medication for him because of his overdose and abuse potential. However, he was concerned about withdrawal. In agreement with Dr. Cantu, we agreed to discharge him with 12 tablets for a tapered stop. If he meets with his psychiatrist and gets refill/continue medication, this will be between him and psychiatrist, but I did emphasize I thought it was a not-ideal medication for him. (2) Hepatitis C: Patient is a previous intravenous drug abuser (3) Mood disorder: (4) Substance abuse: Prior narcotic abuse. - Verified his methadone dosing was [address] [facility]. He was given one dose while inpatient and can follow up with them tomorrow. Total Time Total Time Spent Total Time Spent (In Minutes): 35 Discharge Plan Discharge Items Patient Disposition: Home - Self-Care Reason For Visit: INTENTIONAL GABAPENTIN OVERDOSE Discharge Diagnosis: Gabapentin overdose Activity: Resume your previous activity Non-emergency contact: Psychiatrist Call non-emergency contact if: your symptoms worsen Follow-up/Referrals: PCP,NO [Primary Care Provider] - Diet: Regular Addtl Attending Provider Instructions: Mr. Vogel, You were admitted for an intentional overdose of your gabapentin when you became upset at the staff at your halfway. Despite reportedly taking 80+ pills, you felt well by the next day. All of your labs are stable as well. Psychiatry saw you and felt that you did not pose a risk for suicide, and you have assured us you have no further intention for self-harm. Additionally, you have a plan lined up for a place to stay and income from your job coming. Please use the short prescription of gabapentin to taper it. You can take 4 today, 3 tomorrow & Thursday, 2 on Thursday, then 1 on Thursday & Thursday. This will prevent a withdrawal. Alternatively, if you speak with your psychiatrist, and he/she decides to continue the gabapentin, you can work with him/her. You received methadone 117 mg by mouth in the hospital on 10/12/2019 at 8:30am. Please follow up with [facility] for your next dose tomorrow. You were not given any take-home doses or prescribed any methadone on discharge. Pending Studies at Discharge: No Stand-Alone Forms: My [facility], Smoking Cessation, Suicide Prevention Resources Medications and DC Order Prescriptions: Continued methadone 5 mg/5 mL Solution 117 mg PO QAM RF: 0 lamotrigine 150 mg tablet 150 mg PO QAM RF: 0 gabapentin 300 mg capsule 300 mg PO QID Qty: 12 RF: 0 Discharge Orders: Discharge Order (Routine); Ordered 10/12/19 Ordered By: Curtis Roberts/Other Patient Handouts: Addiction: Your Treatment Options Admission Data Admit Date/Time: 10/11/19 13:19 Attending Provider: Curtis Tejeda Admit Provider: Cam Pearson Primary Care Provider: PCP,NO Other Providers: Aurea Cantu ; Curtis Tejeda Other Interventions: Discharge Summary Assessment (RN) Last Done: 10/12/19 12:31 Coding Level of Care Code 41779 OBS Care - Discharge Diagnoses Gabapentin overdose T42.6X1A Hepatitis C B19.20 Mood disorder F39 Substance abuse F19.10
[2019-10-14 09:02] LABS: Marijuana Quant, GCMS Urine 259 ng/mL (<5); Methadone, Ur Metabolite >10000 ng/mL (<100)
== END 2019-10-12 13:30 | disposition home or self-care (01) ==
LOC: ED 10:56 → 2S 10:56 → SUATTDRO 13:19 → 2S 13:46